=== PATIENT | male | born 1965 | race Caucasian/White ===

== ENCOUNTER 2018-02-07 23:32 | Emergency (ER) | payer MEDICARE, SELFPAY ==
[2018-02-07 23:33] VITALS: BP 161/72; PULSE 101; RESP 20; TEMP 36.7; O2SAT 95; BMI 26.1
--- NOTE | 2018-02-07 23:57 | ED.DCSUM_ITS ---
- ER Visit Summary Date of Service: 02/07/18 Chief Complaint: Nausea vomiting and shortness of breath History of Present Illness: The patient is a 52 M with nausea vomiting and shortness of breath after healing chlorine. He has had symptoms like this in the past. He has no abdominal pain. He has a history of asthma feels some wheezing. He has no chest pain no recent fever chills everything started about 2 hours ago. Physical Examination: Patient is actively vomiting. Moist mucous membranes, no obvious facial deformity No C-spine tenderness supple neck. Regular rate and rhythm without any obvious murmurs Slight wheezing bilaterally speaking in full sentences without any obvious respiratory distress Abdomen soft and nontender no guarding or rebound Moves all extremities without any difficulty or pain. Skin does not show any obvious rashes or lesions, no trauma. Alert oriented ?3 with no gross focal deficit Emergency Department Course and Treatment: Patient received albuterol, antiemetics and he significantly improve his workup shows slight leukocytosis, I believe this is nonspecific. This may be secondary to the fact that he inhaled the bleach, it could be early stages of either GI or an upper respiratory infection. Patient has no fever and appears improved. He did mention he had some diffuse muscle aches after the vomiting, this was treated. I will discharge him in stable condition Discharge stable condition Impression: Nausea vomiting This note was generated with [employer] dictation software. It may contain incorrect words, spelling, and punctuation that were not noted in review of the chart prior to signing ED Disposition - Plan for ED Patient: Disposition: Home or Assisted Living Chief Complaint: General Illness Instructions: ED Nausea Vomiting Referrals: NOT,DEFINED [NON-STAFF] - 3-5 Days
[2018-02-08] MEDS: LORazepam 2 MG/ML Syringe 0.5 MG IV (00:13)
[2018-02-08] MEDS: Ondansetron 4 MG/2 ML Vial IV (00:13)
--- NOTE | 2018-02-08 00:21 | RAD_ITS ---
STUDY: X-RAY CHEST REASON FOR EXAM: Male, 52 years old. PT STATES HE WAS EXPOSED TO BLEACH AND NOW C/O DIFF BREATHING,COUGHING, SWEATING AND N/V.C/O THIRST TECHNIQUE: Single AP portable view of the chest. COMPARISON: None. FINDINGS: The lungs are clear and expanded. There is no demonstrated pleural abnormality. Normal size heart. Normal mediastinum and devan. Normal visualized pulmonary arteries. Normal visualized aortic arch and descending thoracic aorta. There is a dextroscoliosis of the thoracic spine. There is degenerative osteoarthritis of the bilateral shoulders. There is no demonstrated abnormality of the visualized soft tissue structures of the upper abdomen. RAD/Chest 1 View (Portable) IMPRESSION: Degenerative changes, as described above. No demonstrated acute cardiopulmonary process. Electronically Signed: Denis New MD at 1:23 EST Tel , Service support ,
[2018-02-08 00:37] LABS: Basophil# 0.03 X10^3/uL; Basophil% 0.2 % (0-1); Eosinophil# 0.08 X10^3/uL; Eosinophils% 0.5 % (0-5); Hematocrit 42.7 % (40-54); Hemoglobin 14.9 g/dl (13.0-16.5); Lymphocyte % 10.8 % (19-41); Mean Corp Hgb Conc 34.9 g/gl (32-36); Mean Corpuscular Hgb 32.5 pg (27.0-32.0); Monocyte# 0.98 X10^3/uL; Monocyte% 6.6 % (0-10); Neutrophil # 12.03 X10^3/uL (2.7-7.7); Neutrophil % 81.6 % (47-70); POSITIVE COUNT NO; POSITIVE DIFFERENTIAL NO; POSITIVE MORPHOLOGY NO; Platelet Count 327 K/mm3 (150-450); RBC Distribution Width CV 13.5 % (11.6-14.6); RBC Distribution Width SD 44.8 fl (35.1-43.9); Red Blood Count 4.59 M/mm3 (4.6-6.2); White Blood Count 14.8 K/mm3 (4.4-11.0)
[2018-02-08 00:46] LABS: ALB/GLOB Ratio 1.3 RATIO (0.9-2.4); AST(SGOT) 15 U/L (15-37); Alanine Aminotransfer ALT/SGPT 30 U/L (16-61); Albumin, Serum 4.1 g/dL (3.2-5.0); Alkaline Phosphatase 70 U/L (45-117); Anion Gap 10 (5-15); BUN 19 mg/dL (7-18); BUN/Creat Ratio 19.8 RATIO (10-20); Chloride 104 mmol/L (98-107); Creatinine, Serum 0.96 mg/dL (0.70-1.30); EST Glomerular Filtration Rate 87 mL/min (>60); Est Glom Filt Rate - Afr Amer 105 mL/min (>60); Estimated Creatinine Clearance 86.09 ml/min; Globulin 3.1 g/dL (2.2-4.2); Glucose 91 mg/dL (74-106); Potassium 3.2 mmol/L (3.5-5.1); Protein, Total 7.2 g/dL (6.4-8.2); Sodium Level 139 mmol/L (136-145)
[2018-02-08] MEDS: 0.9% Normal Saline 1,000 ML 999 ML IV (01:19)
[2018-02-08] MEDS: HYDROmorphone 0.5 MG/0.5 ML SYRINGE IV (01:20)
[2018-02-08] MEDS: Ketorolac 15 MG/ML Vial IV (01:23)
[2018-02-08 03:15] VITALS: BP 127/72; BP 127/78; PULSE 86; PULSE 88; RESP 16; O2SAT 92
[2018-02-08] MEDS: HYDROcodone Bitartrate/Apap 5/325 Tablet PO (03:28)
[2018-02-08] MEDS: Ondansetron ODT 4 MG Tablet PO (03:29)
== END 2018-02-08 03:32 | disposition home or self-care (01) ==
PROVIDERS: Emergency Provider Emergency Medicine
DX: R11.2 Nausea with vomiting, unspecified (principal); J45.909 Unspecified asthma, uncomplicated; Z77.098 Contact with and (suspected) exposure to other hazardous, chiefly nonmedicinal, chemicals; M79.10 Myalgia, unspecified site; Z72.0 Tobacco use
CPT/HCPCS: 71045; 80053; 85025; 96361; 96374; 96375; 99285; A4216; J2405

== ENCOUNTER 2018-02-14 20:22 | Observation (INO) | payer MEDICARE, SELFPAY ==
[2018-02-14 20:27] VITALS: BP 172/108; PULSE 122; RESP 20; TEMP 36.7; O2SAT 95; BMI 27.0
[2018-02-14 21:10] LABS: Absolute Lymphocyte Count 1.62 X10^3/ul (0.83-4.51); Absolute Neutrophil Count 23.5 X10^3/uL (2.0-7.7); Basophil# 0.04 X10^3/uL; Basophil% 0.1 % (0-1); Eosinophil# 0.05 X10^3/uL; Eosinophils% 0.2 % (0-5); Hematocrit 45.7 % (40-54); Hemoglobin 15.7 g/dl (13.0-16.5); Lymphocyte # 1.62 X10^3/ul (4.0); Mean Corp Hgb Conc 34.4 g/gl (32-36); Mean Corpuscular Hgb 31.8 pg (27.0-32.0); Mean Corpuscular Volume 92.5 fL (80-94); Monocyte# 1.78 X10^3/uL; Monocyte% 6.6 % (0-10); Neutrophil # 23.46 X10^3/uL (2.7-7.7); Neutrophil % 86.4 % (47-70); Platelet Count 423 K/mm3 (150-450); RBC Distribution Width CV 13.5 % (11.6-14.6); RBC Distribution Width SD 44.4 fl (35.1-43.9); Red Blood Count 4.94 M/mm3 (4.6-6.2); White Blood Count 27.2 K/mm3 (4.4-11.0)
[2018-02-14 21:21] LABS: AST(SGOT) 12 U/L (15-37); Alanine Aminotransfer ALT/SGPT 24 U/L (16-61); Albumin, Serum 4.1 g/dL (3.2-5.0); Alkaline Phosphatase 102 U/L (45-117); Anion Gap 13 (5-15); BUN 17 mg/dL (7-18); BUN/Creat Ratio 14.3 RATIO (10-20); Calcium,Total 9.2 mg/dL (8.5-10.1); Chloride 104 mmol/L (98-107); Creatinine, Serum 1.19 mg/dL (0.70-1.30); EST Glomerular Filtration Rate 68 mL/min (>60); Est Glom Filt Rate - Afr Amer 82 mL/min (>60); Estimated Creatinine Clearance 69.45 ml/min; Globulin 4.2 g/dL (2.2-4.2); Glucose 116 mg/dL (74-106); Lipase 107 U/L (73-393); Potassium 3.5 mmol/L (3.5-5.1); Protein, Total 8.3 g/dL (6.4-8.2); Sodium Level 138 mmol/L (136-145)
[2018-02-14 21:25] VITALS: BP 164/84; PULSE 111; RESP 20; O2SAT 94
[2018-02-14] MEDS: Metoclopramide 10 MG/2 ML Vial IV (21:26)
[2018-02-14] MEDS: 0.9% Normal Saline 1,000 ML 1000 ML IV (21:26)
[2018-02-14 21:31] LABS: Differential Indicated SCAN CRITERIA MET; Lactic Acid 4.6 mmol/L (0.4-2.0); POSITIVE COUNT NO; POSITIVE DIFFERENTIAL YES; POSITIVE MORPHOLOGY NO
--- NOTE | 2018-02-14 21:42 | ED.RN ---
notified Dr. Pro of lactic acid 4.6
--- NOTE | 2018-02-14 22:01 | CT_ITS ---
STUDY: CT ABDOMEN AND PELVIS WITHOUT CONTRAST REASON FOR EXAM: Male, 52 years old. Hematemesis RADIATION DOSAGE (If Supplied By Facility): CTDIvol = ( 6.68 ) mGy, DLP = ( 348.86 ) mGycm TECHNIQUE: Transaxial images were obtained from the dome of the diaphragm to the symphysis pubis without oral contrast, and without intravenous contrast. Sagittal and coronal images were reconstructed. Individualized dose optimization techniques were used for this CT. COMPARISON: November 04, 2016 FINDINGS: The visualized lung bases are unremarkable. The visualized portions of the heart are within normal limits. Liver is normal size. There is a small cyst in left lobe. Bile ducts aren't dilated. Normal gallbladder and extrahepatic biliary system. Normal spleen. Normal pancreas. Small hiatal hernia is noted. Normal bilateral adrenal glands. Small nodule in the right adrenal measuring approximately 2.7 x 1.5 cm Normal left kidney. Normal visualized stomach. Normal small intestine. Diverticular changes of the distal descending and sigmoid colon without evidence for acute diverticulitis The appendix is visualized and appears normal. Mild atherosclerotic changes of the aorta without evidence for aneurysm Normal inferior vena cava. Normal retroperitoneum. Normal urinary bladder. Tiny fat-containing umbilical hernia. Lumbar spine demonstrates moderate spondylosis CT/Abdomen/Pelvis without Cont IMPRESSION: Diverticular changes of the distal descending and sigmoid colon without evidence for acute diverticulitis No acute abnormalities Electronically Signed: Dale Grier MD at 22:46 EST , Service support ,
[2018-02-14] MEDS: 0.9% Normal Saline 1,000 ML IV.SOLN. 1000 ML IV (22:26)
[2018-02-14 23:09] VITALS: BP 151/92; PULSE 104; RESP 18; O2SAT 96
--- NOTE | 2018-02-14 23:19 | EKG12_ITS ---
Test Reason : CP Blood Pressure : / mmHG Vent. Rate : 098 BPM Atrial Rate : 098 BPM P-R Int : 152 ms QRS Dur : 088 ms QT Int : 360 ms P-R-T Axes : 055 025 031 degrees QTc Int : 459 ms Normal sinus rhythm Normal ECG Confirmed by LEODAN CURIEL, CARLINE ([id number]), copy editor JEANNIE FORD ([id number]) on 02/16/2018 3:43:44 PM Referred By: DR SORTO Confirmed By:CARLINE ALCOCER MD
--- NOTE | 2018-02-14 23:25 | RAD_ITS ---
STUDY: X-RAY CHEST REASON FOR EXAM: Male, 52 years old. Chest pain TECHNIQUE: Frontal view of the chest COMPARISON: 02/08/2018 FINDINGS: The lungs are clear. There are no pleural effusions. There is no pneumothorax. The heart is normal in size. The visualized osseous structures are within normal limits. RAD/Chest 1 View (Portable) IMPRESSION: No acute thoracic pathology. Electronically Signed: Ronny Saul, at 23:41 EST Tel , Service support ,
[2018-02-14] MEDS: Ondansetron 4 MG/2 ML Vial IV (23:35)
[2018-02-14] MEDS: Morphine 4 MG/ML Syringe IV (23:35)
--- NOTE | 2018-02-14 23:46 | ED.VISSUMM ---
- ER Visit Summary Date of Service: 02/14/18 Chief Complaint: [Nausea and vomiting] History of Present Illness: The patient is a 52 M [presents the emergency department complaint of vomiting that started today after eating at [employer]. Patient states that he was not feeling well afterwards and started to vomit and after about the fourth episode of emesis started having bright red blood in his vomitus. Patient complains of upper abdominal discomfort. Patient apparently was in the emergency department 5 days ago for similar complaint of vomiting and some trouble breathing. Patient was discharged to home and had not been doing relatively well. Patient denies any fever. He denies any chest pain to me initially. He denies any shortness of breath. Patient denies recent travel or antibiotic usage. He denies any sick contacts.] Physical Examination: [HEENT-PERRLA, EOMI. Cranial nerves II through XII grossly intact. TMs clear. Mucous membranes moist. No adenopathy. Cardiovascular-regular rate and rhythm without murmur or ectopy Lungs-clear to auscultation, chest wall stable without crepitus or subcu emphysema Abdomen-normoactive bowel sounds, soft. Patient has tenderness over the epigastric region with some guarding. There is no rebound, rigidity, or perineal signs. Extremities-intact ?4, normal range of motion, normal pulses, atraumatic] Test Results: [CBC with differential obtained on arrival showed a white count of 27,000, hemoglobin 15.7, hematocrit 46, platelets 423. Chemistries unremarkable. BUN was 17 and creatinine 1.19. LFTs were unremarkable. Lipase was 107. Lactate was elevated 4.6. Patient had a CT scan of the abdomen and pelvis showed some diverticulosis otherwise nothing acute. EKG obtained after patient started complaining of chest pain showed a sinus rhythm with a ventricular rate of 98 bpm with no acute ST segment changes. Troponin is pending. Chest x-ray showed nothing acute. Emergency Department Course and Treatment: [Patient was given Reglan on arrival and he had no further vomiting. The emesis patient had on arrival to the ER was dark and maroon colored. After patients are complaint of chest pain he was given morphine and Zofran. Case was discussed with Dr. Mario Lora who is on-call for general surgery as my plan was to admit patient to medicine. I suspect patient likely has a Irlanda-Corral tear and has had no further vomiting in the emergency department. Patient was started on Protonix.] Treatment Plan: [Admit for further workup and evaluation] Disposition: [Admit] Impression: [Upper GI bleed Irlanda-Corral tear Leukocytosis-etiology uncertain Chest pain Lactic acidosis] This note was generated with [employer] dictation software. It may contain incorrect words, spelling, and punctuation that were not noted in review of the chart prior to signing ED Disposition - Plan for ED Patient: Chief Complaint: Nausea/Vomiting Referrals: Giorgi Leggett, [employer] [Primary Care Provider] -
--- NOTE | 2018-02-14 23:56 | ED.DCSUM_ITS ---
- ER Visit Summary Date of Service: 02/14/18 Chief Complaint: [Nausea and vomiting] History of Present Illness: The patient is a 52 M [presents the emergency department complaint of vomiting that started today after eating at [employer]. Patient states that he was not feeling well afterwards and started to vomit and after about the fourth episode of emesis started having bright red blood in his vomitus. Patient complains of upper abdominal discomfort. Patient apparently was in the emergency department 5 days ago for similar complaint of vomiting and some trouble breathing. Patient was discharged to home and had not been doing relatively well. Patient denies any fever. He denies any chest pain to me initially. He denies any shortness of breath. Patient denies recent travel or antibiotic usage. He denies any sick contacts.] Physical Examination: [HEENT-PERRLA, EOMI. Cranial nerves II through XII grossly intact. TMs clear. Mucous membranes moist. No adenopathy. Cardiovascular-regular rate and rhythm without murmur or ectopy Lungs-clear to auscultation, chest wall stable without crepitus or subcu emphysema Abdomen-normoactive bowel sounds, soft. Patient has tenderness over the epigastric region with some guarding. There is no rebound, rigidity, or perin eal signs. Extremities-intact ?4, normal range of motion, normal pulses, atraumatic] Test Results: [CBC with differential obtained on arrival showed a white count of 27,000, hemoglobin 15.7, hematocrit 46, platelets 423. Chemistries unremarkable. BUN was 17 and creatinine 1.19. LFTs were unremarkable. Lipase was 107. Lactate was elevated 4.6. Patient had a CT scan of the abdomen and pelvis showed some diverticulosis otherwise nothing acute. EKG obtained after patient started complaining of chest pain showed a sinus rhythm with a ventricular rate of 98 bpm with no acute ST segment changes. Troponin is pending. Chest x-ray showed nothing acute. Emergency Department Course and Treatment: [Patient was given Reglan on arrival and he had no further vomiting. The emesis patient had on arrival to the ER was dark and maroon colored. After patients are complaint of chest pain he was given morphine and Zofran. Case was discussed with Dr. Mario Lora who is on- call for general surgery as my plan was to admit patient to medicine. I suspect patient likely has a Irlanda-Corral tear and has had no further vomiting in the emergency department. Patient was started on Protonix.] Treatment Plan: [Admit for further workup and evaluation] Disposition: [Admit] Impression: [Upper GI bleed Irlanda-Corral tear Leukocytosis-etiology uncertain Chest pain Lactic acidosis] This note was generated with [employer] dictation software. It may contain incorrect words, spelling, and punctuation that were not noted in review of the chart prior to signing ED Disposition - Plan for ED Patient: Chief Complaint: Nausea/Vomiting Referrals: Giorgi Leggett, [employer] [Primary Care Provider] -
[2018-02-15] VITALS (14 sets, daily range): BP systolic 89–142; BP diastolic 52–87; PULSE 69–96; RESP 15–18; TEMP 36.5–36.7; O2SAT 92–97; BMI 26.4; BMI 26.5
--- NOTE | 2018-02-15 00:20 | PCM.HP.STD ---
Problem List (1) Acute GI bleeding Status: Acute History of Present Illness Date of Admission: 02/15/18 Chief Complaint: hematemesis The patient is a 52 year old M with a significant history of COPD and asthma who presented to the emergency department because of hematemesis that started on the day of admission. Patient had nausea, vomiting and abdominal pain for about 1 week. He presented to the emergency department about 5 days and was given pain medications and antiemetics and sent home. Patient reported that he went to [facility] today and after eating 2 tacos he felt nauseated and went home. When he went home he vomited and had some hematemesis. Patient has chronic diarrhea that he attributes to lactose intolerance. Indeed he reports that on the day of presentation his diarrhea slowed down with him having about 3 bowel movements on the day. Emergency department doctor reported coffee ground emesis. Also patient reports of left-sided chest pain that started at the same time that his symptoms above began. He reports that his chest pain is excruciating; and he describes it as somebody given a blow to his chest. His chest pain is aggravated by laughing or coughing.; And is relieved by relaxing. Associated if his symptoms is diaphoresis. His chest pain is episodic. Importantly patient reports smoking marijuana. However since his symptoms started he has not smoked any marijuana. 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 He uses CBD oil that he puts under his tongue. He has multiple allergies. At emergency department patient was found to have elevated white count of 27.2; and lactic acid of 4.6. Past Medical History Medical History: Medical History (Last Updated 02/15/18 @ 01:00 by Elmer Duffy MD) Asthma J45.909 COPD (chronic obstructive pulmonary disease) J44.9 Allergies aspirin Allergy (Verified 02/14/18 20:30) Shortness of breath ciprofloxacin [From Cipro] Allergy (Verified 02/14/18 20:30) Unknown ciprofloxacin HCl [From Cipro] Allergy (Verified 02/14/18 20:30) Unknown doxycycline Allergy (Verified 02/14/18 20:30) Unknown Iodinated Contrast- Oral and IV Dye [Iodinated Contrast Media - IV Dye] Allergy (Verified 02/14/18 20:30) Unknown lisinopril Allergy (Verified 02/14/18 20:30) Other milk Allergy (Verified 02/14/18 20:30) Unknown Home Medications: Ambulatory Orders Medication Instructions Recorded NK 02/14/18 Surgical History: herniorrhaphy, - - Neck surgery with plates x 3 Lives: Spouse/ Significant Other Smoking Status: Current every day smoker - *Family History Maternal History Items: Diabetes, Heart Disease Paternal History Items: Diabetes, Heart Disease Review of Systems Constitutional: Reports: Weakness. Denies: Chills, Fever, Weight Change HEENT: Denies: Head Aches, Sinus Congestion, Sinus Drainage Cardiovascular: Reports: Chest Pain. Denies: Palpitations Respiratory: Reports: Cough. Denies: Shortness of breath at rest, Sputum production Gastrointestinal: Reports: Abdominal Pain, Diarrhea - chronic, Hematemesis, Nausea, Vomiting Genitourinary: Denies: Dysuria Musculoskeletal: Denies: Joint Pain, Joint Tenderness Skin: Denies: Rash, Wounds Neurological: Denies: Numbness, Tingling, Focal weakness Psychiatric: Denies: Anxiety, Depression, Homicidal Ideations, Suicidal Ideations Hematologic/ Lymphatic: Denies: Easy Bruising, Easy Bleeding VTE Information - Inpt Only VTE Present on Admission: No VTE Mechan Device Prophylaxis: SCD's VTE Pharm Prophylaxis ordered?: No Reason prophylaxis not ordered:: Treatment Not Indicated - With GI bleed. Patient Problems: Active and Suspected Problems (Last Updated 02/15/18 @ 01:00 by Elmer Duffy MD) Acute GI bleeding (Acute) - Physical Exam General: Alert, Oriented x3, Cooperative HEENT: Atraumatic, PERRLA, EOMI, Normocephalic Neck: Supple, No JVD, Negative Carotid Bruits Lungs: Clear to auscultation, Normal air movement Cardiovascular: Regular rate, No murmurs Abdomen: Bowel Sounds Present, Soft, Tender Extremities: No edema, Capillary Refill Less than 3 Seconds Skin: No rashes, No breakdown Musculoskeletal: No Tenderness to Palpation of Joints or Extremities Neurological: Cranial nerves II-XII grossly intact Psych/Mental Status: Normal Affect, Appropriate Vital Signs Temp Pulse Resp BP Pulse Ox 98.1 F 104 H 18 151/92 H 96 02/14/18 20:27 02/14/18 23:09 02/14/18 23:09 02/14/18 23:09 02/14/18 23:09 Oxygen Delivery Method Room Air Weight: 80.6 kg Body Mass Index (BMI) 27.0 Laboratory Tests Past 24 Hrs 02/14/18 02/14/18 02/14/18 20:30 20:30 20:30 WBC 27.2 H RBC 4.94 Hgb 15.7 Hct 45.7 MCV 92.5 MCH 31.8 MCHC 34.4 RDW 13.5 RDW Differential 44.4 H Plt Count 423 MPV 10.0 Immature Gran % (Auto) 0.700 Neut % (Auto) 86.4 H Lymph % (Auto) 6.0 L [place] % (Auto) 6.6 Eos % (Auto) 0.2 Baso % (Auto) 0.1 Absolute Neuts (auto) 23.5 H Absolute Lymphs (auto) 1.62 Total Counted Not Reportable Differential Comment Diff Path Review May foll Sodium 138 Potassium 3.5 Chloride 104 Carbon Dioxide 21.0 Anion Gap 13 BUN 17 Creatinine 1.19 Estim Creat Clear Calc 69.45 Est GFR (MDRD) Af Amer 82 Est GFR (MDRD) Non-Af 68 BUN/Creatinine Ratio 14.3 Glucose 116 H Lactic Acid 4.6 H* Calcium 9.2 Total Bilirubin 1.00 AST 12 L ALT 24 Alkaline Phosphatase 102 Total Protein 8.3 H Albumin 4.1 Globulin 4.2 Albumin/Globulin Ratio 1.0 Lipase 107 Blood Type Antibody Screen 02/14/18 21:02 WBC RBC Hgb Hct MCV MCH MCHC RDW RDW Differential Plt Count MPV Immature Gran % (Auto) Neut % (Auto) Lymph % (Auto) [place] % (Auto) Eos % (Auto) Baso % (Auto) Absolute Neuts (auto) Absolute Lymphs (auto) Total Counted Differential Comment Diff Path Review Sodium Potassium Chloride Carbon Dioxide Anion Gap BUN Creatinine Estim Creat Clear Calc Est GFR (MDRD) Af Amer Est GFR (MDRD) Non-Af BUN/Creatinine Ratio Glucose Lactic Acid Calcium Total Bilirubin AST ALT Alkaline Phosphatase Total Protein Albumin Globulin Albumin/Globulin Ratio Lipase Blood Type O POSITIVE Antibody Screen NEGATIVE Assessment/Plan All Active Problems (Last Updated 02/15/18 @ 01:00 by Elmer Duffy MD) Acute GI bleeding (Acute) The patient is a 52 year old M with a significant history of COPD and asthma who presented to the emergency department with nausea, vomiting abdominal pain and hematemesis. Acute GI bleed Differential diagnosis include Irlanda Corral tear; esophagitis; gastritis or other. Likely upper GI bleeding. Received IV bolus of Protonix. Protonix infusion continues We will check CBC in the a.m. and then H&H every 8 hours. Chest pain Patient reports a family history of heart attacks at both sides of his family Chest pain is aggravated with coughing and laughing which make musculoskeletal source of chest pain likely. Also chest pain could be attributed to GI pathology Will trend troponin at this time. If chest pain persists consider further cardiac work up Leukocytosis WBC 27.2 Likely from Gastritis Trend. Lactic acidosis Likely from dehydration Trend IV hydration. Asthma Stable Marijuana Abuse Counselled DVT prophlyaxis SCD . Code Visit OBSV E&M: 14725 Initial observation care L3
--- NOTE | 2018-02-15 00:47 | EKG12_ITS ---
Test Reason : ADM EKG Blood Pressure : / mmHG Vent. Rate : 094 BPM Atrial Rate : 094 BPM P-R Int : 158 ms QRS Dur : 082 ms QT Int : 366 ms P-R-T Axes : 050 029 030 degrees QTc Int : 457 ms Normal sinus rhythm Normal ECG When compared with ECG of 01-JUN-2010 16:57, No significant change was found Confirmed by LEODAN CURIEL, CARLINE ([id number]), field map editor JEANNIE FORD ([id number]) on 02/19/2018 1:50:00 PM Referred By: TERESA Confirmed By:CARLINE ALCOCER MD
[2018-02-15 00:58] LABS: Reflex Lactate? Y
[2018-02-15] MEDS: 0.9% Normal Saline 1,000 ML 100 ML IV (00:59)
--- NOTE | 2018-02-15 00:59 | ED.RN ---
took pt to floor with multiple family members
[2018-02-15 01:14] LABS: Lactic Acid 1.1 mmol/L (0.4-2.0)
[2018-02-15 03:59] LABS: Hematocrit 37.3 % (40-54); Hemoglobin 12.5 g/dl (13.0-16.5); Mean Corp Hgb Conc 33.5 g/gl (32-36); Mean Corpuscular Hgb 31.4 pg (27.0-32.0); Mean Corpuscular Volume 93.7 fL (80-94); Mean Platelet Vol. 9.5 fl (6.2-12.0); Platelet Count 315 K/mm3 (150-450); RBC Distribution Width CV 13.4 % (11.6-14.6); RBC Distribution Width SD 44.7 fl (35.1-43.9); Red Blood Count 3.98 M/mm3 (4.6-6.2); White Blood Count 21.4 K/mm3 (4.4-11.0)
[2018-02-15 04:24] LABS: Scan Indicated on CBC? Y/N NO
--- NOTE | 2018-02-15 05:53 | HP.PCM_ITS ---
Problem List (1) Acute GI bleeding Status: Acute History of Present Illness Date of Admission: 02/15/18 The patient is a 52 year old M who presented to the emergency room last night after severe coughing with subsequent nausea vomiting and hematemesis. Claims he ate at [employer] had 2 tacos took a shower felt nauseated started coughing and then had vomiting. States that because of his asthma and COPD oil he has numbness in the past but without the blood. He states that he is on herbal medications including CBD. He denies previous history of stomach ulcer. He states that he does not take any nonsteroidal anti-inflammatory agents. Claims that he is 100% disabled secondary to previous trauma back and neck injury. He denies any previous surgery on his abdomen. He has had remote inguinal hernia repairs. On his presentation his white blood cell count was 27.2 with hemoglobin 15.7 and hematocrit of 45.7 and platelet count of 423,000. This morning his white blood cell count is 21.4 with a hemoglobin 12.5 and hematocrit of 37.3 and a platelet count of 315,000. On his admission his BUN was slightly elevated at 17 his creatinine was 1.19. He states that he had not been feeling well for period of time and had decreased oral intake. His lactic acid level on presentation was 4.6 and then on repeat level is 1.1. Troponin is normal. Liver function tests are normal. Coagulation profile was not obtained. Past Medical History Medical History: Medical History (Last Updated 02/15/18 @ 01:00 by Elmer Duffy MD) Asthma J45.909 COPD (chronic obstructive pulmonary disease) J44.9 Allergies aspirin Allergy (Verified 02/14/18 20:30) Shortness of breath ciprofloxacin [From Cipro] Allergy (Verified 02/14/18 20:30) Unknown ciprofloxacin HCl [From Cipro] Allergy (Verified 02/14/18 20:30) Unknown doxycycline Allergy (Verified 02/14/18 20:30) Unknown Iodinated Contrast- Oral and IV Dye [Iodinated Contrast Media - IV Dye] Allergy (Verified 02/14/18 20:30) Unknown lisinopril Allergy (Verified 02/14/18 20:30) Other milk Allergy (Verified 02/14/18 20:30) Unknown Home Medications: Ambulatory Orders Medication Instructions Recorded NK 02/14/18 Surgical History: herniorrhaphy, - - Neck surgery with plates x 3 Lives: Spouse/ Significant Other Smoking Status: Current every day smoker - *Family History Maternal History Items: Diabetes, Heart Disease Paternal History Items: Diabetes, Heart Disease Review of Systems Constitutional: Reports: Anorexia Respiratory: Reports: Cough Gastrointestinal: Reports: Hematemesis, Nausea, Vomiting Genitourinary: Denies: Dysuria Musculoskeletal: Reports: Back Pain Endocrine: Denies: Change in Body Habitus VTE Information - Inpt Only VTE Present on Admission: No Patient Problems: Active and Suspected Problems (Last Updated 02/15/18 @ 01:00 by Elmer Duffy MD) Acute GI bleeding (Acute) - Physical Exam General: Alert, Oriented x3, Cooperative, No apparent distress HEENT: Atraumatic Oral: Moist Mucosa Neck: Supple Lungs: Clear to auscultation, Normal air movement, - - Increased anterior posterior diameter Cardiovascular: Regular rate, Regular Rhythm Abdomen: Bowel Sounds Present, Soft, Non Tender, Non-Distended Extremities: No Calf Tenderness Skin: No rashes Psych/Mental Status: Normal Affect Vital Signs Temp Pulse Resp BP Pulse Ox 98.1 F 84 18 127/54 H 96 02/15/18 05:04 02/15/18 05:04 02/15/18 05:04 02/15/18 05:04 02/15/18 05:04 Oxygen Delivery Method Room Air Weight: 174 lb 13.225 oz Body Mass Index (BMI) 26.4 Intake and Output for Last 24 Hours 02/13/18 02/14/18 02/15/18 23:59 23:59 23:59 Intake Total 416 / 416 Output Total 325 / 325 Balance 91 / 91 Laboratory Tests Past 24 Hrs 02/14/18 02/14/18 02/14/18 20:30 20:30 20:30 WBC 27.2 H RBC 4.94 Hgb 15.7 Hct 45.7 MCV 92.5 MCH 31.8 MCHC 34.4 RDW 13.5 RDW Differential 44.4 H Plt Count 423 MPV 10.0 Immature Gran % (Auto) 0.700 Neut % (Auto) 86.4 H Lymph % (Auto) 6.0 L Vernon % (Auto) 6.6 Eos % (Auto) 0.2 Baso % (Auto) 0.1 Absolute Neuts (auto) 23.5 H Absolute Lymphs (auto) 1.62 Total Counted Not Reportable Differential Comment Diff Path Review May foll Sodium 138 Potassium 3.5 Chloride 104 Carbon Dioxide 21.0 Anion Gap 13 BUN 17 Creatinine 1.19 Estim Creat Clear Calc 69.45 Est GFR (MDRD) Af Amer 82 Est GFR (MDRD) Non-Af 68 BUN/Creatinine Ratio 14.3 Glucose 116 H Lactic Acid 4.6 H* Calcium 9.2 Total Bilirubin 1.00 AST 12 L ALT 24 Alkaline Phosphatase 102 Troponin I Total Protein 8.3 H Albumin 4.1 Globulin 4.2 Albumin/Globulin Ratio 1.0 Lipase 107 Blood Type Antibody Screen 02/14/18 02/15/18 02/15/18 21:02 00:28 00:28 WBC RBC Hgb Hct MCV MCH MCHC RDW RDW Differential Plt Count MPV Immature Gran % (Auto) Neut % (Auto) Lymph % (Auto) Vernon % (Auto) Eos % (Auto) Baso % (Auto) Absolute Neuts (auto) Absolute Lymphs (auto) Total Counted Differential Comment Diff Path Review Sodium Potassium Chloride Carbon Dioxide Anion Gap BUN Creatinine Estim Creat Clear Calc Est GFR (MDRD) Af Amer Est GFR (MDRD) Non-Af BUN/Creatinine Ratio Glucose Lactic Acid 1.1 Calcium Total Bilirubin AST ALT Alkaline Phosphatase Troponin I 0.015 Total Protein Albumin Globulin Albumin/Globulin Ratio Lipase Blood Type O POSITIVE Antibody Screen NEGATIVE 02/15/18 02/15/18 03:42 03:42 WBC 21.4 H RBC 3.98 L Hgb 12.5 L Hct 37.3 L MCV 93.7 MCH 31.4 MCHC 33.5 RDW 13.4 RDW Differential 44.7 H Plt Count 315 MPV 9.5 Immature Gran % (Auto) Neut % (Auto) Lymph % (Auto) Vernon % (Auto) Eos % (Auto) Baso % (Auto) Absolute Neuts (auto) Absolute Lymphs (auto) Total Counted Differential Comment Diff Path Review Sodium Potassium Chloride Carbon Dioxide Anion Gap BUN Creatinine Estim Creat Clear Calc Est GFR (MDRD) Af Amer Est GFR (MDRD) Non-Af BUN/Creatinine Ratio Glucose Lactic Acid Calcium Total Bilirubin AST ALT Alkaline Phosphatase Troponin I 0.020 Total Protein Albumin Globulin Albumin/Globulin Ratio Lipase Blood Type Antibody Screen Assessment/Plan All Active Problems (Last Updated 02/15/18 @ 01:00 by Elmer Duffy MD) Acute GI bleeding (Acute) 52-year-old gentleman who after severe coughing had nausea and vomiting with hematemesis. The presentation is very much consistent with a [place] tear. He appears to been very stable overnight. He is afebrile with a normal blood pressure and heart rate. I proposed for him a soft with possible biopsy or polypectomy or control of hemorrhage if indicated. He has had an opportunity to ask and have questions answered. He states that he must be completely out because of a combative nature under anesthesia. We will perform this with monitored anesthesia care. He has had an opportunity to ask and have questions answered. We will proceed later today as scheduling permits. I appreciate the opportunity of assisting with his surgical care. Mario Lora M.D., F.A.C.S.
[2018-02-15] MEDS: Acetaminophen 325 MG Tablet 650 MG PO (05:54)
[2018-02-15 06:38] LABS: Absolute Lymphocyte Count 1.92 X10^3/ul (0.83-4.51); Absolute Neutrophil Count 16.1 X10^3/uL (2.0-7.7); Basophil# 0.03 X10^3/uL; Basophil% 0.2 % (0-1); Eosinophil# 0.03 X10^3/uL; Eosinophils% 0.2 % (0-5); Hematocrit 39.2 % (40-54); Hemoglobin 13.1 g/dl (13.0-16.5); Lymphocyte # 1.92 X10^3/ul (4.0); Lymphocyte % 10.2 % (19-41); Mean Corp Hgb Conc 33.4 g/gl (32-36); Mean Corpuscular Hgb 31.4 pg (27.0-32.0); Mean Platelet Vol. 9.7 fl (6.2-12.0); Monocyte# 0.76 X10^3/uL; Neutrophil # 16.05 X10^3/uL (2.7-7.7); Neutrophil % 85.1 % (47-70); Platelet Count 330 K/mm3 (150-450); RBC Distribution Width CV 13.6 % (11.6-14.6); RBC Distribution Width SD 44.8 fl (35.1-43.9); Red Blood Count 4.17 M/mm3 (4.6-6.2); White Blood Count 18.9 K/mm3 (4.4-11.0)
[2018-02-15 06:39] LABS: International Normalized Ratio 1.1; Prothrombin Time (Protime)PT. 14.3 SECONDS (11.7-14.9)
[2018-02-15 06:40] LABS: Partial Thromboplast Time 35.7 Seconds (24.1-36.2)
[2018-02-15 06:42] LABS: POSITIVE COUNT NO; POSITIVE DIFFERENTIAL NO; POSITIVE MORPHOLOGY NO
[2018-02-15 06:53] LABS: Anion Gap 9 (5-15); BUN 14 mg/dL (7-18); BUN/Creat Ratio 16.3 RATIO (10-20); Calcium,Total 8.1 mg/dL (8.5-10.1); Chloride 107 mmol/L (98-107); Creatinine, Serum 0.86 mg/dL (0.70-1.30); EST Glomerular Filtration Rate 99 mL/min (>60); Est Glom Filt Rate - Afr Amer 119 mL/min (>60); Glucose 95 mg/dL (74-106); Potassium 3.7 mmol/L (3.5-5.1); Sodium Level 140 mmol/L (136-145)
--- NOTE | 2018-02-15 10:39 | NURSING ---
report called to otf [facility]
--- NOTE | 2018-02-15 11:30 | EGD_PTH ---
PATIENT: MIGUEL ANGEL AGUIRRE LOC: [facility] U#:[id number] AGE/SX: 52/M ROOM: [facility] RE02/15/[address]: Dr. Vipin Law DO : 1965 BED: 1 DIS: 02/15/2018 SPEC #: [id number] RECD: 02/15/18 14:05 STATUS: [facility] #: [id number] NAHED: 02/15/18 11:[address]: Mario Lora DEPT: SURGICAL PATHOLOGY RECD BY: Niko Tang ENTERED: 02/15/18 15:45 SP TYPE: EGD BIOPSY OTHR DR: MD Dr. Vipin Kelly DO Dr. Robert D Cebul, MD Richard Dennis Tompkins, FISCAL TECHNICIAN-C Tissues: A - Gastric mucous membrane B - Esophageal mucous membrane C - Esophageal mucous membrane Procedures: Surgery Specimen Level IV Comments: @ Ordering doctor for SUIV edited from to @ ramonita ROMERO at 02/16/18 0755 @ Submitting doctor edited from to @ ramonita ROMERO at 02/16/18 0755 HEADER OPERATION: EGD ([facility] [place]) PRE-OP DIAGNOSIS: Upper GI bleed TISSUE SUBMITTED: A. Antral biopsy for H. Pylori, B. Distal esophageal polyp, C. Distal esophageal biopsy MICROSCOPIC DIAGNOSIS A. Gastric antrum, biopsy: Tissue lost in processing. B. Distal esophageal polyp, biopsy: Polypoid fragments of benign squamous mucosa with acute inflammation. Negative for fungal organisms. Focal changes of reflux. C. Distal esophagus, biopsy: Focal changes consistent with reflux. AM:beverly 02/16/18 COMMENT A. This tissue was lost in processing. B. GMS stain with matched control supports the above diagnosis. Case has been reviewed in consultation with Dr. Escaalnte who concurs with the above diagnosis. IDC:SJ MICROSCOPIC DESCRIPTION Slides are reviewed. GROSS DESCRIPTION A. Received is one container labeled with the patient name and designated antral biopsy. The specimen consists of one irregular fragment of light baptiste soft tissue that measures 0.3 x 0.3 x 0.1 cm. The specimen is totally submitted in one cassette. B. Received is one container labeled with the patient name and designated distal esophagus. The specimen consists of multiple irregular fragments of light baptiste soft tissue that in aggregate measure 0.7 x 0.2 x 0.1 cm. The specimen is totally submitted in one cassette. C. Received is one container labeled with the patient name and designated distal esophagus. The specimen consists of two irregular fragments of light baptiste soft tissue that in aggregate measure 0.6 x 0.5 x 0.1 cm. The specimen is totally submitted in one cassette. AM:beverly 02/15/18 TC: 2 CPT: 15414l2, 95822r2
--- NOTE | 2018-02-15 11:49 | OP.ENDO_ITS ---
Patient Name: Nathaniel Tarango Procedure Date: 02/15/2018 10:50 AM Date of : 1965 Age: 52 Procedure: Upper GI endoscopy Indications: Hematemesis Providers: Mario Lora MD Medicines: See the Anesthesia note for documentation of the administered medications Complications: No immediate complications. Procedure: Pre-Anesthesia Assessment: - Prior to the procedure, a History and Physical was performed, and patient medications and allergies were reviewed. The patient's tolerance of previous anesthesia was also reviewed. The risks and benefits of the procedure and the sedation options and risks were discussed with the patient. All questions were answered, and informed consent was obtained. Prior Anticoagulants: The patient has taken no previous anticoagulant or antiplatelet agents. ASA Grade Assessment: II - A patient with mild systemic disease. After reviewing the risks and benefits, the patient was deemed in satisfactory condition to undergo the procedure. After obtaining informed consent, the endoscope was passed under direct vision. Throughout the procedure, the patient's blood pressure, pulse, and oxygen saturations were monitored continuously. The gastroscope was introduced through the mouth, and advanced to the second part of duodenum. The upper GI endoscopy was accomplished without difficulty. The patient tolerated the procedure well. Scope In: 11:30:45 AM Scope Out: 11:39:33 AM Total Procedure Duration Time 0 hours 8 minutes 48 seconds Findings: The Z-line was irregular and was found 40 cm from the incisors. Biopsies were taken with a cold forceps for histology. LA Grade A (one or more mucosal breaks less than 5 mm, not extending between tops of 2 mucosal folds) esophagitis was found 40 cm from the incisors. A medium-sized hiatal hernia was present. Diffuse mildly erythematous mucosa without bleeding was found in the gastric antrum. Biopsies were taken with a cold forceps for histology. The examined duodenum was normal. Two polyps with no bleeding were found 40 cm from the incisors. The polyp was removed with a hot snare. Resection and retrieval were complete. Impression: - Z-line irregular, 40 cm from the incisors. Biopsied. - LA Grade A reflux esophagitis. Likely source of minimal bleeding. No current bleeding Distal esophageal polyps x 2. Pathology pending - Medium-sized hiatal hernia. - Erythematous mucosa in the antrum. Biopsied. - Normal examined duodenum. No active bleeding. No esophageal tear. Findings are c/w hiatal hernia and GERD. Medical treatment will be appropriate Recommendation: - Discharge patient to home when medically stable - Resume previous diet. - Continue present medications. - Give Protonix (pantoprazole): 8 mg/hr IV by continuous infusion now but home on oral meds - Telephone my office for pathology results in 1 week. Procedure Code(s): --- Professional --- 48645, Esophagogastroduodenoscopy, flexible, transoral; with removal of tumor(s), polyp(s), or other lesion(s) by snare technique 87969, 59, Esophagogastroduodenoscopy, flexible, transoral; with biopsy, single or multiple Diagnosis Code(s): --- Professional --- K22.8, Other specified diseases of esophagus K21.0, Gastro-esophageal reflux disease with esophagitis K44.9, Diaphragmatic hernia without obstruction or gangrene K31.89, Other diseases of stomach and duodenum K92.0, Hematemesis CPT copyright 2017 [employer]. All rights reserved. The codes documented in this report are preliminary and upon third rigger review may be revised to meet current compliance requirements. Mario Lora MD 02/15/2018 11:48:56 AM This report has been signed electronically. Number of Addenda: 0 Note Initiated On: 02/15/2018 10:50 AM
[2018-02-15 13:02] LABS: Hematocrit 37.6 % (40-54); Hemoglobin 12.5 g/dl (13.0-16.5)
--- NOTE | 2018-02-15 14:28 | PCM.DC ---
- Discharge Diagnoses Current Active Problems: Current Active and Chronic Problems (Last Updated 02/15/18 @ 01:00 by Elmer Duffy MD) Acute GI bleeding (Acute) You will use the following diet at home:: No restrictions Your food should be the consistency of: Regular Your liquids should be the consistency of: Regular/Thin Discharge Activity: Return to Normal Activity Weight Bearing Status: Full weight bearing Allergies/Adverse Reactions: Allergies aspirin Allergy (Verified 02/14/18 20:30) Shortness of breath ciprofloxacin [From Cipro] Allergy (Verified 02/14/18 20:30) Unknown ciprofloxacin HCl [From Cipro] Allergy (Verified 02/14/18 20:30) Unknown doxycycline Allergy (Verified 02/14/18 20:30) Unknown Iodinated Contrast- Oral and IV Dye [Iodinated Contrast Media - IV Dye] Allergy (Verified 02/14/18 20:30) Unknown lisinopril Allergy (Verified 02/14/18 20:30) Other milk Allergy (Verified 02/14/18 20:30) Unknown Medications to take at Discharge Omeprazole [Prilosec] 40 mg PO DAILY #60 capsule 02/15/18 The following prescriptions were given: Omeprazole [Prilosec] 40 mg PO DAILY #60 capsule Primary Care Physician: Giorgi Leggett, CERTIFIED MARINE MECHANIC-C [Primary Care Provider] - Test Results: Test results from this visit will be discussed in further detail at your follow-up appointment, if applicable.
--- NOTE | 2018-02-15 14:34 | DCINST_ITS ---
- Discharge Diagnoses Current Active Problems: Current Active and Chronic Problems (Last Updated 02/15/18 @ 01:00 by Elmer Duffy MD) Acute GI bleeding (Acute) You will use the following diet at home:: No restrictions Your food should be the consistency of: Regular Your liquids should be the consistency of: Regular/Thin Discharge Activity: Return to Normal Activity Weight Bearing Status: Full weight bearing Allergies/Adverse Reactions: Allergies aspirin Allergy (Verified 02/14/18 20:30) Shortness of breath ciprofloxacin [From Cipro] Allergy (Verified 02/14/18 20:30) Unknown ciprofloxacin HCl [From Cipro] Allergy (Verified 02/14/18 20:30) Unknown doxycycline Allergy (Verified 02/14/18 20:30) Unknown Iodinated Contrast- Oral and IV Dye [Iodinated Contrast Media - IV Dye] Allergy (Verified 02/14/18 20:30) Unknown lisinopril Allergy (Verified 02/14/18 20:30) Other milk Allergy (Verified 02/14/18 20:30) Unknown Medications to take at Discharge Omeprazole [Prilosec] 40 mg PO DAILY #60 capsule 02/15/18 The following prescriptions were given: Omeprazole [Prilosec] 40 mg PO DAILY #60 capsule Primary Care Physician: Giorgi Leggett, THREAD GRINDER-C [Primary Care Provider] - Test Results: Test results from this visit will be discussed in further detail at your follow- up appointment, if applicable.
[2018-02-16 10:05] LABS: Pathologist Review Reviewed
--- NOTE | 2018-02-16 10:05 | DS.PCM_ITS ---
Discharge Date and Diagnosis Date of Admission: 02/15/18 Date of Discharge: 02/15/18 - Primary Discharge Diagnosis #1 hematemesis secondary to reflux esophagitis #2 reflux esophagitis #3 distal esophageal polyps #4 hiatal hernia #5 leukocytosis-etiology unclear Hospital Course and Treatment Operations: None Procedures: EGD Summary of Care Provided: The patient is a 52 year old M who was seen in the emergency room at [facility] with a chief complaint of nausea and vomiting and one episode of hematemesis. Workup in the emergency room included a CBC which showed an elevated white count 27,000, lactate was elevated at 4.6, chest x-ray showed no acute changes, hemoglobin was normal at 15.7. Patient was not felt to be septic. Patient was given Reglan in the emergency room, he had one episode of emesis on arrival to the emergency room which was dark and maroon colored. Patient was given morphine and IV Zofran. General surgery was consulted and patient was admitted placed into observation status on PCU, repeat H&H is were performed and there was no significant drop and hemoglobin. Patient underwent an EGD on 02/15/18 which showed reflux esophagitis, distal esophageal polyps, and no evidence of active bleeding or esophageal tear. The etiology of the patient's elevated white blood cell count was unknown. On 02/15/18, patient was seen and examined: On examination he appeared in good health and spirits. Vital signs as documented. Skin warm and dry and without overt rashes. Neck without JVD. Lungs clear. Heart exam notable for regular rhythm, normal sounds and absence of murmurs, rubs or gallops. Abdomen unremarkable and without evidence of organomegaly, masses, or abdominal aortic enlargement. Extremities nonedematous. Neuro: Cranial nerves II through XII are grossly intact, no focal motor deficits were noted. Psych: Patient was alert and oriented x3, he did not appear depressed or anxious. On 02/15/18, patient was seen and examined and discharged home in stable condition. - Physical Exam Vital Signs Temp Pulse Resp BP Pulse Ox 98 F 72 15 128/76 H 97 02/15/18 13:00 02/15/18 13:13 02/15/18 13:00 02/15/18 13:00 02/15/18 13:00 Oxygen Flow Rate (L/min) 2 Oxygen Delivery Method Room Air Weight: 79.3 kg Body Mass Index (BMI) 26.4 Intake and Output for Last 24 Hours 02/14/18 02/15/18 02/16/18 23:59 23:59 23:59 Intake Total 1767 / 1767 Output Total 325 / 325 Balance 1442 / 1442 Laboratory Tests Past 24 Hrs 02/15/18 12:45 Hgb 12.5 L Hct 37.6 L Discharge Activity: Return to Normal Activity Weight Bearing Status: Full weight bearing Home Medications: Medications to take at Discharge Omeprazole [Prilosec] 40 mg PO DAILY #60 capsule 02/15/18 Following Prescrptions Were Given to Patient: Omeprazole [Prilosec] 40 mg PO DAILY #60 capsule Primary Care Physician: Giorgi Leggett, PHOTO LAB TECHNICIAN-C [Primary Care Provider] - Disposition: Home Minutes spent on discharge:: 26 Patient Condition:: Stable Medical Necessity - Tobacco Use Smoking Status: Current every day smoker Meaningful Use Info Meaningful Use Diagnoses (Choose all that apply): None applicable Code Visit OBSV E&M: 79845 Observ/hosp same date L3
== END 2018-02-15 14:45 | disposition home or self-care (01) ==
LOC: ED 20:51 → PCU 02-15 00:11
PROVIDERS: Surgery; Admitting Provider Hospitalist; Emergency Provider Emergency Medicine; Family Provider Nurse Practitioner Family; PCP Nurse Practitioner Family; Visit Provider Internal Medicine
PROC: 0DJ08ZZ Inspection of Upper Intestinal Tract, Via Natural or Artificial Opening Endoscopic (ICD-10-PCS; CPT 43235; principal; 2018-02-15 11:25)
DX: K21.0 Gastro-esophageal reflux disease with esophagitis (principal); K44.9 Diaphragmatic hernia without obstruction or gangrene; D72.829 Elevated white blood cell count, unspecified; K92.0 Hematemesis; J44.9 Chronic obstructive pulmonary disease, unspecified; F17.200 Nicotine dependence, unspecified, uncomplicated; F12.10 Cannabis abuse, uncomplicated; J45.909 Unspecified asthma, uncomplicated; R20.0 Anesthesia of skin
CPT/HCPCS: 43239; 43251; 36415; 71045; 74176; 80048; 80053; 83605; 83690; 84484; 85014; 85018; 85025; 85027; 85610; 85730; 86850; 86900; 88305; 88342; 93005; 96361; 96365; 96366; 96375; 96376; 97802; 99218; 99282; J7030; A4216; G0378; J2405; J3490

== ENCOUNTER → 2019-01-10 18:05 | Outpatient (CLI) | payer MEDICARE, SELFPAY ==
[2019-01-10 15:18] VITALS: BMI 26.4
== END ==
PROVIDERS: Family Provider Nurse Practitioner Family; PCP Nurse Practitioner Family; Referring Provider Physician Assistant; Visit Provider Physician Assistant
DX: J02.9 Acute pharyngitis, unspecified (principal)
CPT/HCPCS: 87070

== ENCOUNTER → 2019-01-17 14:47 | Outpatient (CLI) | payer MEDICARE, SELFPAY ==
[2019-01-10 15:18] VITALS: BMI 26.4
[2019-01-17 15:18] LABS: Absolute Lymphocyte Count 1.27 X10^3/uL (0.83-4.51); Absolute Neutrophil Count 4.6 X10^3/uL (2.0-7.7); Basophil# 0.03 X10^3/uL; Basophil% 0.5 % (0-1); Eosinophil# 0.09 X10^3/uL; Eosinophils% 1.4 % (0-5); Hematocrit 44.7 % (40-54); Lymphocyte # 1.27 X10^3/ul (4.0); Lymphocyte % 19.6 % (19-41); Mean Corp Hgb Conc 33.6 g/dL (32-36); Mean Corpuscular Hgb 31.6 pg (27.0-32.0); Mean Corpuscular Volume 94.3 fL (80-94); Mean Platelet Vol. 9.4 fl (6.2-12.0); Monocyte# 0.47 X10^3/uL; Monocyte% 7.2 % (0-10); NRBC Flagged by Analyzer 0 % (0-5); Neutrophil % 70.8 % (47-70); Platelet Count 290 K/mm3 (150-450); RBC Distribution Width CV 12.9 % (11.6-14.6); RBC Distribution Width SD 44.5 fl (35.1-43.9); Red Blood Count 4.74 M/mm3 (4.6-6.2); White Blood Count 6.5 K/mm3 (4.4-11.0)
[2019-01-17 15:34] LABS: Erythrocyte Sedimentation Rate 8 mm/hr (0-20)
[2019-01-17 15:53] LABS: ALB/GLOB Ratio 1.3 RATIO (0.9-2.4); AST(SGOT) 15 U/L (15-37); Alanine Aminotransfer ALT/SGPT 30 U/L (16-61); Albumin, Serum 3.9 g/dL (3.2-5.0); Alkaline Phosphatase 77 U/L (45-117); Amylase 72 U/L (25-115); Anion Gap 5 (5-15); BUN 17 mg/dL (7-18); BUN/Creat Ratio 18.6 RATIO (10-20); CRP < 2.90 mg/L (0.0-3.0); Calcium,Total 8.9 mg/dL (8.5-10.1); Chloride 109 mmol/L (98-107); Creatinine, Serum 0.91 mg/dL (0.70-1.30); EST Glomerular Filtration Rate 92 mL/min (>60); Est Glom Filt Rate - Afr Amer 111 mL/min (>60); Glucose 99 mg/dL (74-106); Lipase 137 U/L (73-393); Potassium 4.3 mmol/L (3.5-5.1); Protein, Total 6.9 g/dL (6.4-8.2); Sodium Level 141 mmol/L (136-145)
== END ==
PROVIDERS: Family Provider Nurse Practitioner Family; PCP Nurse Practitioner Family; Referring Provider Surgery; Visit Provider Surgery
DX: R10.33 Periumbilical pain (principal); R19.7 Diarrhea, unspecified
CPT/HCPCS: 36415; 80053; 82150; 83690; 85025; 85652; 86140

== ENCOUNTER → 2019-01-18 13:19 | Outpatient (CLI) | payer MEDICARE, SELFPAY ==
[2019-01-17 16:27] VITALS: BMI 26.4
[2019-01-23 15:36] LABS: Fats, Neutral Normal (.); Fats, Total Normal (.)
== END ==
PROVIDERS: Family Provider Nurse Practitioner Family; PCP Nurse Practitioner Family; Referring Provider Surgery; Visit Provider Surgery
DX: R19.7 Diarrhea, unspecified (principal); R10.33 Periumbilical pain
CPT/HCPCS: 82705; 83630; 87493; 87506

== ENCOUNTER 2019-01-21 05:20 | Day surgery (SDC) | payer MEDICARE, SELFPAY ==
--- NOTE | 2019-01-01 04:59 | HP_ITS ---
Intake Vital Signs 01/01/19 Body Mass Index (BMI) 26.4 01/01/19 Height 5 ft 8.5 in 01/01/19 Weight: 184 lb 5 oz 01/01/19 Body Mass Index (BMI) 27.6 01/01/19 Blood Pressure 145/93 H 01/01/19 Blood Pressure Location Rt brachial 01/01/19 Blood Pressure Position Sitting 01/01/19 Respiratory Rate 20 H 01/01/19 Pulse Rate 61 01/01/19 Pulse Ox 96 Intake Visit Reasons: Umbilical Hernia Chief Complaint: umbilical hernia Vascular Neurologist Required: No Is patient in pain?: No Allergies aspirin Allergy (Verified 01/01/19 14:28) Shortness of breath ciprofloxacin [From Cipro] Allergy (Verified 01/01/19 14:28) Unknown ciprofloxacin HCl [From Cipro] Allergy (Verified 01/01/19 14:28) Unknown doxycycline Allergy (Verified 01/01/19 14:28) Unknown Iodinated Contrast Media [Iodinated Contrast Media - IV Dye] Allergy (Verified 01/01/19 14:28) Unknown lisinopril Allergy (Verified 01/01/19 14:28) Other milk Allergy (Verified 01/01/19 14:28) Unknown Medications Omeprazole [Prilosec] 40 mg PO DAILY #60 cap 02/15/18 [Rx Confirmed 01/01/19] FOR[facility], LAT[facility] Medical History (Updated 01/01/19 @ 16:57 by Mario Lora MD) Umbilical hernia (Acute) Periumbilical abdominal pain (Acute) Asthma (Acute) DJD (degenerative joint disease), cervical (Acute) Emphysema lung (Acute) GERD (gastroesophageal reflux disease) (Acute) IBS (irritable bowel syndrome) (Acute) Lactose intolerance (Acute) Sleep apnea (Acute) COPD (chronic obstructive pulmonary disease) (Chronic) Surgical History (Updated 01/01/19 @ 14:27 by Sheyla Villatoro) History of hernia repair (Acute) History of hernia repair (Acute) History of neck surgery (Acute) History of neck surgery (Acute) History of neck surgery (Acute) Family History (Updated 01/01/19 @ 14:27 by Sheyla Villatoro) Father Asthma Diabetes Mother Asthma Social History (Updated 01/01/19 @ 16:59 by Mario Lora MD) Smoking Status: Current every day smoker HPI HPI HPI: MIGUEL ANGEL AGUIRRE, is a 53 M who presents to the office today for HPI HPI Surgical H&P: Yes HPI: MIGUEL ANGEL AGUIRRE, is a 53 M who presents to the office today for surgery consultation regarding periumbilical abdominal pain. 53-year-old gentleman. He chews tobacco. He is chronically disabled from back and shoulder problems. He is able to ride a bicycle. He states that he has had pneumonia on several occasions and he claims that it has been of undetermined etiology. On further discussion with him he claims that in the past he has had some material prolapsing from his rectum which was excised. He will very infrequently have bright red rectal bleeding. Claims that his mother had multiple colon polyps. He has never had a colonoscopy. He is being referred by his primary care provider Chivo Leggett CNP for surgical consultation regarding what is felt to be an umbilical hernia and a written compromise surgical consult and recommendations will be returned to him. ROS General General: Yes fatigue; no weight change, appetite, colon cancer, breast cancer or weakness HEENT HEENT: No difficulty swallowing, eye injury, eye surgery, swollen glands or hoarseness Endo Endocrine: No thyroid disease, diabetes mellitus, thyroid cancer, Hair loss, heat intolerance or cold intolerance Cardio Cardiovascular: No murmur, pacemaker, heart disease, atrial fibrillation, high blood pressure, heart attack, heart stent, palpitations, shortness of breat with exertion or chest pain Resp Respiratory: No shortness of breath, Yes sleep apnea, No cough, Yes COPD, Yes asthma, Yes emphysema, No wheezing Gastro Gastrointestinal: Yes abdominal pain, No nausea or vomiting, Yes diarrhea, No constipation, No blood in stool, Yes acid reflux, No hemorrhoids, No ulcers, No gallbladder problem, No black,tarry stools Chris Hematologic: No blood thinners, No blood disorders, No bleeding, No anemia, No blood clots Neuro Neurologic: No weakness Exam Const General: cooperative, comfortable, no acute distress Nutritional Appearance: average body habitus Orientation: alert, oriented x3 HENMT Head: atraumatic Chest Chest palpation & inspection: normal inspection of the chest Resp Effort & Inspection: normal respiratory effort Auscultation: clear to auscultation bilaterally Cardio Rate: regular rate Rhythm: regular rhythm Heart Sounds: no murmurs GI Palpation: soft Auscultation: normal bowel sounds Other: Umbilical hernia is noted with tissue protruding slightly to the right. Not reducible mildly tender. No erythema. Skin General: no rashes or lesions noted Neuro Cognition: normal cognition Extrem General: no calf tenderness bilaterally Psych Affect: normal affect Assessment & Plan Problems 1. Periumbilical abdominal pain R10.33 2. Umbilical hernia without obstruction and without gangrene K42.9 Plan The patient has never had a previous colonoscopy and I am recommending a colonoscopy with possible biopsy or polypectomy as indicated. He has had an opportunity to ask and have questions answered. We will schedule and proceed at his discretion. Subsequently I am recommending a umbilical herniorrhaphy with mesh. In detail I have described utilization of a ventralex product. He has had an opportunity to ask and have questions answered. We will schedule and proceed at his discretion. He is aware that subsequently he will have to allow for resolution. He does a significant amount of bike riding and walking. He is aware that he will have to allow the mesh repair chance to heal and resolve. I very much appreciate the kind opportunity of assisting with the surgical care. We will schedule and proceed at his discretion. CC: Chivo Leggett, LENCHO Lora M.D., F.A.C.S. Coding Level of Care Code 88702 Diagnoses Periumbilical abdominal pain R10.33 Umbilical hernia without obstruction and without gangrene K42.9 ??Obstruction and gangrene presence: without obstruction or gangrene 01/01/19 9134 <Electronically signed by Mario jackson MD> Date _ Mario Lora MD I have re-examined the patient. There are no clinical changes since date of exam.
[2019-01-01 14:29] VITALS: BMI 26.4
[2019-01-17 16:27] VITALS: BMI 26.4
[2019-01-21] VITALS (7 sets, daily range): BP systolic 86–140; BP diastolic 59–91; PULSE 56–74; RESP 16–18; TEMP 36.1–36.4; O2SAT 94–97; BMI 27.1
[2019-01-21] MEDS: Lactated Ringers 1,000 ML 100 ML IV (06:02)
--- NOTE | 2019-01-21 06:30 | EGD_PTH ---
PATIENT: MIGUEL ANGEL AGUIRRE LOC: EN U#:[id number] AGE/SX: 53/M ROOM: RE01/21/[address]: Dr. Mario Lora MD : 1965 BED: DIS: 01/21/2019 SPEC #: [id number] RECD: 01/21/19 10:08 STATUS: HOMER LAMAR #: [id number] NAHED: 01/21/19 06:[address]: Mario Lora DEPT: SURGICAL PATHOLOGY RECD BY: Niko Tang ENTERED: 01/21/19 11:17 SP TYPE: EGD BIOPSY TAMI DR: Giorgi Leggett, OYSTER HARVESTER-C Tissues: A - Gastric mucous membrane B - Esophageal mucous membrane Procedures: Surgery Specimen Level IV HEADER OPERATION: Colonoscopy, EGD ([facility] [place]) PRE-OP DIAGNOSIS: GERD, abdominal pain and hernia TISSUE SUBMITTED: A. Antral biopsy for H. pylori and pathology, B. Distal esophageal biopsy MICROSCOPIC DIAGNOSIS A. Antral biopsy: Mild gastritis. See microscopic description and comment. B. Distal esophageal biopsy: A fragment of squamous epithelium with minimal chronic inflammation and congestion. ANGELO:naomi 01/22/19 COMMENT A. The results of immunohistochemistry for Helicobacter pylori will be reported separately ([id number]). MICROSCOPIC DESCRIPTION Slides are reviewed. A. The specimen shows fragments of gastric mucosa with chronic inflammatory cell infiltrates in the lamina propria consisting of lymphocytes and plasma cells, consistent with mild chronic gastritis. GROSS DESCRIPTION A - Received in fixative is one container labeled with the patient's name and designated antral biopsy. The specimen consists of one irregular fragment of light baptiste soft tissue that measures 0.3 x 0.3 x 0.1 cm. The specimen is totally submitted in one cassette. B - Received in fixative is one container labeled with the patient's name and designated distal esophageal biopsy. The specimen consists of one irregular fragment of light baptiste soft tissue that measures 0.4 x 0.3 x 0.1 cm. The specimen is totally submitted in one cassette. / ANGELO:naomi 01/21/19 TC:3 CPT: 28188 x2
--- NOTE | 2019-01-21 06:30 | IMM_PTH ---
PATIENT: MIGUEL ANGEL AGUIRRE LOC: [facility] U#:[id number] AGE/SX: 53/M ROOM: RE01/21/[address]: Dr. Mario Lora MD : 1965 BED: DIS: 01/21/2019 SPEC #: [id number] RECD: 01/21/19 11:18 STATUS: HOMER REAshley #: [id number] NAHED: 01/21/19 06:[address]: Mario Lora DEPT: IMMUNOHISTOCHEMISTRY RECD BY: Katie Luciano ENTERED: 01/21/19 11:18 SP TYPE: IMMUNO OTHR DR: Giorgi Leggett, MANAGER UI-C Tissues: A - Stomach, NOS Procedures: H Pylori (initial) PHYSICIAN & INSTITUTION [place] [address] SPECIMEN INFORMATION: Tissue Source: A - Antral biopsy Clinical Info: GERD; abdominal pain, hernia Specimen Number: [id number] CPT code: 29425 METHODOLOGY: Deparaffinized sections of prefer/formalin-fixed tissue or PAP/DQ stained slides are incubated with monoclonal/polyclonal antibodies/oligonucleotide probes. Localization is made via biotin free immunoperoxidase method. Appropriate controls are performed and reacted as expected. Results on target cell population are indicated in the following table: RESULTS: ANTIBODY / CLONE RESULT Block A H Pylori (polyclonal) negative These tests were developed and their performance characteristics determined by [facility]. They may not have been cleared or approved by the U.S. Food and Drug Administration. The FDA has determined that such clearance or approval is not necessary. INTERPRETATION: A. Antral biopsy: Negative for Helicobacter pylori organisms. SJ:naomi 01/22/19
--- NOTE | 2019-01-21 06:36 | HP.PCM_ITS ---
Problem List (1) Periumbilical abdominal pain Status: Acute (2) Acute GI bleeding Status: Acute History and Physical Date of Admission: 01/21/19 Intake Visit Reasons: diarrhea/ nausea Chief Complaint: diarrhea/ abd pain Allergies lemon Allergy (Severe, Verified 01/17/19 15:16) SOB aspirin Allergy (Verified 01/17/19 15:16) Shortness of breath ciprofloxacin [From Cipro] Allergy (Verified 01/17/19 15:16) Unknown ciprofloxacin HCl [From Cipro] Allergy (Verified 01/17/19 15:16) Unknown doxycycline Allergy (Verified 01/17/19 15:16) Unknown Iodinated Contrast Media [Iodinated Contrast Media - IV Dye] Allergy (Verified 01/17/19 15:16) Unknown lisinopril Allergy (Verified 01/17/19 15:16) Other milk Allergy (Verified 01/17/19 15:16) Unknown [facility] Medical History (Updated 01/01/19 @ 16:57 by Mario Lora MD) Umbilical hernia (Acute) Periumbilical abdominal pain (Acute) Asthma (Acute) DJD (degenerative joint disease), cervical (Acute) Emphysema lung (Acute) GERD (gastroesophageal reflux disease) (Acute) IBS (irritable bowel syndrome) (Acute) Lactose intolerance (Acute) Sleep apnea (Acute) COPD (chronic obstructive pulmonary disease) (Chronic) Surgical History (Updated 01/01/19 @ 14:27 by Sheyla Villatoro) History of hernia repair (Acute) History of hernia repair (Acute) History of neck surgery (Acute) History of neck surgery (Acute) History of neck surgery (Acute) Family History (Updated 01/01/19 @ 14:27 by Sheyla Villatoro) Father Asthma Diabetes Mother Asthma Social History (Updated 01/17/19 @ 16:34 by Ana Garvin PA-C) Smoking Status: Current every day smoker HPI HPI HPI: MIGUEL ANGEL AGUIRRE, is a 53 M who presents to the office today for HPI HPI Surgical H&P: Yes HPI: MIGUEL ANGEL AGUIRRE, is a 53 M who presents to the office today for increased diarrhea, abdominal pain, nausea, vomiting. Patient was scheduled to have a colonoscopy. Patient was noted to have a sore throat and flu-like symptoms the day prior to his scheduled colonoscopy. Patient rescheduled his colonoscopy to the following week. Patient was noted to not be able to complete his bowel prep and was a no show to his 2nd scheduled colonoscopy. Patient states he has been lactose intolerant for years. He notes he has had diarrhea, nausea, vomiting for years. He is unsure of the exact reason for his symptoms. Patient states he has had previous upper scopes however he is unsure of where these scopes have been completed. Patient notes he has diarrhea upwards of 17 times per day. He notes within the last 6 months his children have moved back into his house which has been very stressful for him. He has never had a colonoscopy. He notes within the last several days the nausea, vomiting has increased. His bowel habits have changed and increase in diarrhea has occurred over the last few years. He also notes having a hernia at the umbilicus which causes intermittent pain. He is unsure if he has had weight loss. Patient's previous history per Dr. Lora: MIGUEL ANGEL AGUIRRE, is a 53 M who presents to the office today for surgery consultation regarding periumbilical abdominal pain. 53-year-old gentleman. He chews tobacco. He is chronically disabled from back and shoulder problems. He is able to ride a bicycle. He states that he has had pneumonia on several occasions and he claims that it has been of undetermined etiology. On further discussion with him he claims that in the past he has had some material prolapsing from his rectum which was excised. He will very infrequently have br ight red rectal bleeding. Claims that his mother had multiple colon polyps. He has never had a colonoscopy. He is being referred by his primary care provider Chivo Leggett CNP for surgical consultation regarding what is felt to be an umbilical hernia and a written compromise surgical consult and recommendations will be returned to him. Exam GI Other: Abdomen- tender at the umbilicus. No prominent bulge noted. Assessment & Plan Problems 1. Umbilical hernia without obstruction and without gangrene K42.9 2. Diarrhea, unspecified type R19.7 3. Abdominal pain, unspecified abdominal location R10.9 4. Nausea and vomiting, intractability of vomiting not specified, unspecified vomiting type R11.[address] Lora will plan to perform upper and lower endoscopy. Procedure details, risks and benefits have been reviewed. Patient will obtain CBC, CMP, amylase, SED rate today. Patient and his have had the opportunity to ask and have questions answered. Patient verbally understands and agrees with the plan. We will plan to schedule an umbilical hernia repair at a later date. Coding Level of Care Code No Charge Diagnoses Umbilical hernia without obstruction and without gangrene K42.9 ??Obstruction and gangrene presence: without obstruction or gangrene Diarrhea, unspecified type R19.7 ??Diarrhea type: unspecified type Abdominal pain, unspecified abdominal location R10.9 ??Abdominal location: unspecified location Nausea and vomiting, intractability of vomiting not specified, unspecified vomiting type R11.2 ??Vomiting type: unspecified ??Vomiting Intractability: unspecified 01/17/19 1634 <Electronically signed by Ana carcamo PA-C> Date _ Ana Garvin PA-C Cosigner Signature: Date (if applicable) CC: ~ I have re-examined the patient. There are no clinical changes since date of exam .
--- NOTE | 2019-01-21 07:05 | OP.ENDO_ITS ---
01/21/2019 Giorgi Leggett Re : Upper GI endoscopy procedure for Nathaniel Santor Oleksandr This procedure was performed on Monday, January 21, 2019. My impressions and recommendations are as follows: Impressions : - Z-line variable, 43 cm from the incisors. Biopsied. - Small hiatal hernia. - Erythematous mucosa in the antrum. Biopsied. - Normal examined duodenum. Recommendations : - Await pathology results. - Discharge patient to home. - Resume previous diet. - Continue present medications. - Telephone my office for pathology results in 1 week. Findings minimal and do not correlate with complaints of abdominal pain My findings are described in the full procedure note, which is enclosed. If I can be of further assistance, please feel free to contact me at Doctor phone number(s): Work: . Sincerely, Mario Lora MD 01/21/2019 7:04:40 AM This report has been signed electronically.
--- NOTE | 2019-01-21 07:09 | OP.ENDO_ITS ---
01/21/2019 Giorgi Leggett Re : Colonoscopy procedure for Nathaniel Santor Oleksandr This procedure was performed on Monday, January 21, 2019. My impressions and recommendations are as follows: Impressions : - Preparation of the colon was poor. - Enlarged prostate found on digital rectal exam. - Stool in the entire examined colon. - No specimens collected. Recommendations : - Discharge patient to home. - Resume previous diet. - Continue present medications. - Repeat colonoscopy in 1 year for screening purposes. Inadequate to make a decision regarding the cause of abdominal pain Will offer pt a repeat attempt but he states he cant take the prep My findings are described in the full procedure note, which is enclosed. If I can be of further assistance, please feel free to contact me at Doctor phone number(s): Work: . Sincerely, Mario Lora MD 01/21/2019 7:09:11 AM This report has been signed electronically.
== END 2019-01-21 07:50 | disposition home or self-care (01) ==
LOC: EN 05:20 → AC 05:21
PROVIDERS: Family Provider Nurse Practitioner Family; PCP Nurse Practitioner Family; Referring Provider Nurse Practitioner Family; Visit Provider Surgery
PROC: 0DJD8ZZ Inspection of Lower Intestinal Tract, Via Natural or Artificial Opening Endoscopic (ICD-10-PCS; CPT 45378; principal; 2019-01-21 06:25)
DX: K29.70 Gastritis, unspecified, without bleeding (principal); K44.9 Diaphragmatic hernia without obstruction or gangrene; K21.9 Gastro-esophageal reflux disease without esophagitis; K42.9 Umbilical hernia without obstruction or gangrene; N40.0 Benign prostatic hyperplasia without lower urinary tract symptoms; R10.13 Epigastric pain; R10.33 Periumbilical pain; J44.9 Chronic obstructive pulmonary disease, unspecified; F17.220 Nicotine dependence, chewing tobacco, uncomplicated; F12.90 Cannabis use, unspecified, uncomplicated; Z83.71 Family history of colonic polyps
CPT/HCPCS: 43239; 45378; 88305; 88342; J7120; J2405

== ENCOUNTER → 2019-12-12 15:52 | Outpatient (CLI) | payer MEDICARE, SELFPAY ==
[2019-02-05 13:09] VITALS: BMI 27.1
[2019-12-12 17:51] LABS: Hematocrit 43.7 % (40-54); Hemoglobin 14.7 g/dL (13.0-16.5); Mean Corp Hgb Conc 33.6 g/dL (32-36); Mean Corpuscular Hgb 31.3 pg (27.0-32.0); Mean Corpuscular Volume 93.2 fL (80-94); Platelet Count 320 K/mm3 (150-450); RBC Distribution Width CV 12.8 % (11.6-14.6); RBC Distribution Width SD 43.8 fl (35.1-43.9); Red Blood Count 4.69 M/mm3 (4.6-6.2); White Blood Count 7.3 K/mm3 (4.4-11.0)
[2019-12-12 18:52] LABS: ALB/GLOB Ratio 1.3 RATIO (0.9-2.4); AST(SGOT) 15 U/L (15-37); Alanine Aminotransfer ALT/SGPT 26 U/L (16-61); Alkaline Phosphatase 73 U/L (45-117); Anion Gap 8 (5-15); BUN 17 mg/dL (7-18); BUN/Creat Ratio 20.1 RATIO (10-20); Chloride 106 mmol/L (98-107); Creatinine, Serum 0.84 mg/dL (0.70-1.30); EST Glomerular Filtration Rate 100 mL/min (>60); Est Glom Filt Rate - Afr Amer 121 mL/min (>60); Globulin 3.1 g/dL (2.2-4.2); Glucose 77 mg/dL (74-106); Potassium 3.8 mmol/L (3.5-5.1); Protein, Total 7.1 g/dL (6.4-8.2); Sodium Level 139 mmol/L (136-145)
[2019-12-14 08:42] LABS: H. Pylori Antibody (IgG) 0.51 (0.00-0.79)
== END ==
PROVIDERS: PCP Nurse Practitioner Family; Referring Provider Nurse Practitioner Family; Visit Provider Nurse Practitioner Family
DX: R10.13 Epigastric pain (principal); R10.31 Right lower quadrant pain
CPT/HCPCS: 36415; 80053; 85027; 86677

== ENCOUNTER → 2019-12-25 17:15 | Outpatient (CLI) | payer MEDICARE, SELFPAY ==
[2019-02-05 13:09] VITALS: BMI 27.1
--- NOTE | 2019-12-25 17:21 | CT_ITS ---
STUDY: CT ABDOMEN AND PELVIS WITHOUT CONTRAST REASON FOR EXAM: Male, 54 years old. RLQ PAIN X 3-4 MON, KNOWN UMBILICAL HERNIA, PREV SURG-HERNIA REPAIRS X 2 -- UNABLE TO GIVE IV CONTRAST D/T IODINE ALLERGY WITH BREATHING DIFFICULTY- GAVE ORAL ONLY RADIATION DOSAGE (If Supplied By Facility): CTDIvol = ( 7.26 ) mGy, DLP = ( 384.61 ) mGycm TECHNIQUE: Transaxial images were obtained from the dome of the diaphragm to the symphysis pubis with oral contrast, and without intravenous contrast. Sagittal and coronal images were reconstructed. Individualized dose optimization techniques were used for this CT. COMPARISON: Comparison is made with prior study dated 02/14/2018. FINDINGS: The visualized lung bases are unremarkable. The visualized portions of the heart are within normal limits. 1.4 cm cyst in the anterior aspect of the left lobe of the liver. Normal gallbladder and extrahepatic biliary system. Normal spleen. Normal pancreas. There is a small, circumscribed, smooth, low attenuation right adrenal mass, consistent with an adrenal adenoma. This measures 2.7 cm x 1.5 cm. Normal left adrenal gland. Normal right kidney. Normal left kidney. Normal visualized stomach. Normal small intestine. There are multiple colonic diverticula consistent with diverticulosis. There is evidence of a thickening of the wall of the sigmoid colon suggestive of a possible mild diverticulitis although no increased markings are seen in the surrounding fat. The appendix is visualized and appears normal. There is scattered atherosclerotic calcification of the abdominal aorta, without a demonstrated aneurysm. Normal inferior vena cava. Normal retroperitoneum. Normal urinary bladder. There is a small umbilical hernia containing fat. There are diffuse degenerative changes of the visualized lumbar spine. CT/Abdomen/Pelvis without Cont IMPRESSION: Small cyst in the left lobe of the liver. Thickening of the sigmoid colon with sigmoid diverticula suggesting mild diverticulitis although no increased markings are seen in the surrounding peritoneal fat. Electronically Signed: Maximo Cardenas, at 8:33 EDT , Service support ,
== END ==
PROVIDERS: PCP Nurse Practitioner Family; Referring Provider Nurse Practitioner Family; Visit Provider Nurse Practitioner Family
DX: K21.9 Gastro-esophageal reflux disease without esophagitis (principal); R10.13 Epigastric pain; R10.31 Right lower quadrant pain
CPT/HCPCS: 74176

== ENCOUNTER → 2020-04-16 15:37 | Outpatient (CLI) | payer MEDICARE, SELFPAY ==
[2019-02-05 13:09] VITALS: BMI 27.1
--- NOTE | 2020-04-16 15:40 | CT_ITS ---
STUDY: CT ABDOMEN WITHOUT CONTRAST REASON FOR EXAM: Male, 55 years old. ADRENAL MASS, RIGHT. UMBILLICAL HERNIA. RADIATION DOSAGE (If Supplied By Facility): CTDIvol = ( 10.59 ) mGy, DLP = ( 389.61 ) mGycm TECHNIQUE: Transaxial images were obtained without intravenous contrast, and oral contrast. Sagittal and coronal images were reconstructed. 389.61 Individualized dose optimization techniques were used for this CT. COMPARISON: 12/25/2019 FINDINGS: There is minor interstitial thickening at the lung bases.. The visualized portions of the heart are within normal limits. The liver is normal size and homogeneous attenuation. There is a small cyst in the left lobe. Bile ducts are nondilated. Normal gallbladder and extrahepatic biliary system. Normal spleen. Normal pancreas. There is a small hypoattenuated right adrenal nodule measuring approximately 2.7 x 1.4 cm most likely benign and unchanged in size since previous exam. The left adrenal is normal. Normal right kidney. Normal left kidney. Normal visualized stomach. Normal small intestine. Minor diverticular changes of the colon without evidence for acute diverticulitis. The appendix is visualized and appears normal. Mild atherosclerotic changes of the aorta without evidence for aneurysm.. Normal inferior vena cava. Normal retroperitoneum. Tiny fat-containing umbilical hernia.. Lumbar spine demonstrates mild spondylosis. CT/Abdomen without IV Contrast IMPRESSION: Persistent right adrenal nodule most likely benign adenoma unchanged in size since previous study. Small left hepatic cyst. No acute abnormality or other significant change Electronically Signed: Dale Grier MD at 16:06 EST , Service support ,
== END ==
LOC: CT 15:38
PROVIDERS: PCP Nurse Practitioner Family; Referring Provider Nurse Practitioner Family; Visit Provider Nurse Practitioner Family
DX: E27.8 Other specified disorders of adrenal gland (principal)
CPT/HCPCS: 74150

== ENCOUNTER → 2020-11-10 16:51 | Outpatient (CLI) | payer MEDICARE, SELFPAY ==
[2019-02-05 13:09] VITALS: BMI 27.1
--- NOTE | 2020-11-10 16:58 | RAD_ITS ---
STUDY: X-RAY - RIGHT SCAPULA REASON FOR EXAM: Male, 55 years old. SHOULDER PAIN TECHNIQUE: 2 view(s) of the scapula were obtained. COMPARISON: Chest x-ray dated February 14, 2018 FINDINGS: Normal scapula, including the osseous glenoid rim, acromion, scapular neck, spine, coracoid process, and visualized body. Normal glenohumeral articulation. Normal acromioclavicular joint. Normal visualized humeral head. Normal visualized pulmonary apex. There is no demonstrated scapular fracture. There is no demonstrated osseous destructive process of the scapula. RAD/Scapula IMPRESSION: Normal plain film x-ray examination of the scapula. Electronically Signed: Giuliano Flor MD at 17:10 EDT , Service support ,
== END ==
PROVIDERS: PCP Nurse Practitioner Family; Referring Provider Nurse Practitioner Family; Visit Provider Nurse Practitioner Family
DX: S49.91XA Unspecified injury of right shoulder and upper arm, initial encounter (principal)
CPT/HCPCS: 73010

== ENCOUNTER → 2022-01-18 | Outpatient (CLI) | payer MEDICARE, SELFPAY ==
--- NOTE | 2022-01-18 16:37 | RAD_ITS ---
STUDY: X-RAY CHEST REASON FOR EXAM: Male, 56 years old. Upper respiratory infection. TECHNIQUE: PA and lateral views of the chest. COMPARISON: 02/14/2018. FINDINGS: The lungs are clear and expanded. There is no demonstrated pleural abnormality. Normal size heart. Normal mediastinum and devan. Normal visualized pulmonary arteries. Normal visualized aortic arch and descending thoracic aorta. Mild degenerative changes are thoracic spine. Again seen is anterior fusion of lower cervical spine. Normal visualized ribs, clavicles, and shoulders. There is no demonstrated abnormality of the visualized soft tissue structures of the upper abdomen. RAD/Chest PA and Lateral IMPRESSION: Degenerative changes, as described above. No demonstrated acute cardiopulmonary process. Electronically Signed: Mayo Be DO at 18:54 EDT ,
[2022-01-18 16:46] LABS: Hemoglobin 16.3 g/dL (13.0-16.5); Mean Corpuscular Hgb 31.8 pg (27.0-32.0); Mean Corpuscular Volume 93.8 fL (80-94); Mean Platelet Vol. 9.3 fl (6.2-12.0); Platelet Count 316 K/mm3 (150-450); RBC Distribution Width SD 45.1 fl (35.1-43.9); Red Blood Count 5.12 M/mm3 (4.6-6.2)
[2022-01-18 17:06] LABS: ALB/GLOB Ratio 1.1 RATIO (0.9-2.4); AST(SGOT) 16 U/L (15-37); Alanine Aminotransfer ALT/SGPT 33 U/L (16-61); Albumin, Serum 4.1 g/dL (3.2-5.0); Alkaline Phosphatase 87 U/L (45-117); Anion Gap 7 (5-15); BUN 15 mg/dL (7-18); BUN/Creat Ratio 15.6 RATIO (10-20); Calcium,Total 9.7 mg/dL (8.5-10.1); Chloride 104 mmol/L (98-107); Creatinine, Serum 0.96 mg/dL (0.70-1.30); EST Glomerular Filtration Rate 85 mL/min (>60); Est Glom Filt Rate - Afr Amer 103 mL/min (>60); Globulin 3.8 g/dL (2.2-4.2); Glucose 103 mg/dL (74-106); Potassium 3.9 mmol/L (3.5-5.1); Protein, Total 7.9 g/dL (6.4-8.2); Sodium Level 138 mmol/L (136-145)
== END | disposition home or self-care (01) ==
LOC: LAB 16:24
PROVIDERS: PCP Nurse Practitioner Family; Referring Provider Nurse Practitioner Family; Visit Provider Nurse Practitioner Family
DX: J06.9 Acute upper respiratory infection, unspecified (principal); R06.2 Wheezing; R19.7 Diarrhea, unspecified
CPT/HCPCS: 36415; 71046; 80053; 85027

== ENCOUNTER → 2022-08-19 | Outpatient (CLI) | payer MEDICARE, SELFPAY ==
--- NOTE | 2022-08-19 15:00 | RAD_ITS ---
STUDY: X-RAY CHEST REASON FOR EXAM: Male, 57 years old. COUGH WITH WHEEZING TECHNIQUE: Frontal and lateral views of the chest. COMPARISON: 01/18/2022. FINDINGS: The lungs are clear and expanded. There is no demonstrated pleural abnormality. Normal size heart. Normal mediastinum and devan. Normal visualized pulmonary arteries. Normal visualized aortic arch and descending thoracic aorta. Normal visualized thoracic spine. Normal visualized ribs, clavicles, and shoulders. There is no demonstrated abnormality of the visualized soft tissue structures of the upper abdomen. RAD/Chest PA and Lateral IMPRESSION: Normal x-ray examination of the chest. Electronically Signed: Marty Cedeño MD at 22:23 EDT ,
--- NOTE | 2022-08-19 15:00 | RAD_ITS ---
INDICATION: Bilateral hip pain EXAMINATION/TECHNIQUE: X-RAY - XR Hips Bilateral with Pelvis when performed; 2 Views COMPARISON: None. FINDINGS: PELVIC BONES: No displaced fracture, destructive or sclerotic lesions. Note that overlapping bowel shadows may however obscure fine detail. Sacroiliac joints are unremarkable. No widening of the pubic symphysis. HIPS: The articular structures are unremarkable. No displaced fracture seen in this frontal view. SOFT TISSUES: No soft tissue swelling or gas. RAD/Hips B/L min 2 views w/ Pelvis IMPRESSION: No evidence of displaced pelvic or hip fracture. Electronically Signed: Edenilson Solano (Brooks), at 18:09 EDT Reading Location ID and State: [facility] / [place] , Service support ,
[2022-08-19 15:30] LABS: Hematocrit 45.2 % (40-54); Hemoglobin 15.2 g/dL (13.0-16.5); Mean Corp Hgb Conc 33.6 g/dL (32-36); Mean Corpuscular Hgb 31.5 pg (27.0-32.0); Mean Corpuscular Volume 93.8 fL (80-94); Mean Platelet Vol. 9.6 fl (6.2-12.0); Platelet Count 327 K/mm3 (150-450); RBC Distribution Width CV 13.7 % (11.6-14.6); RBC Distribution Width SD 47.6 fl (35.1-43.9); Red Blood Count 4.82 M/mm3 (4.6-6.2); White Blood Count 9.1 K/mm3 (4.4-11.0)
[2022-08-19 16:07] LABS: ALB/GLOB Ratio 1.1 RATIO (0.9-2.4); AST(SGOT) 20 U/L (15-37); Alanine Aminotransfer ALT/SGPT 39 U/L (16-61); Albumin, Serum 3.7 g/dL (3.2-5.0); Alkaline Phosphatase 86 U/L (45-117); Anion Gap 4 (5-15); BUN 20 mg/dL (7-18); BUN/Creat Ratio 20.6 RATIO (10-20); Chloride 108 mmol/L (98-107); Creatinine, Serum 0.97 mg/dL (0.70-1.30); EST Glomerular Filtration Rate 84 mL/min (>60); Est Glom Filt Rate - Afr Amer 102 mL/min (>60); Globulin 3.3 g/dL (2.2-4.2); Glucose 120 mg/dL (74-106); Sodium Level 138 mmol/L (136-145)
== END | disposition home or self-care (01) ==
PROVIDERS: PCP Nurse Practitioner Family; Referring Provider Nurse Practitioner Family; Visit Provider Nurse Practitioner Family
DX: R05.9 Cough, unspecified (principal); L03.90 Cellulitis, unspecified; M25.551 Pain in right hip; R06.2 Wheezing
CPT/HCPCS: 36415; 71046; 73521; 80053; 85027

== ENCOUNTER → 2023-08-18 | Outpatient (CLI) | payer MEDICARE, SELFPAY ==
[2023-08-18 14:10] LABS: ALB/GLOB Ratio 1.1 RATIO (0.9-2.4); AST(SGOT) 18 U/L (15-37); Alanine Aminotransfer ALT/SGPT 43 U/L (16-61); Albumin, Serum 3.7 g/dL (3.2-5.0); Alkaline Phosphatase 69 U/L (45-117); Anion Gap 3 (5-15); BUN 19 mg/dL (7-18); BUN/Creat Ratio 20.1 RATIO (10-20); Calcium,Total 9.1 mg/dL (8.5-10.1); Chloride 109 mmol/L (98-107); Cholesterol 201 mg/dL (200); Creatinine, Serum 0.94 mg/dL (0.70-1.30); EST Glomerular Filtration Rate 87 mL/min (>60); Est Glom Filt Rate - Afr Amer 105 mL/min (>60); Globulin 3.3 g/dL (2.2-4.2); Glucose 116 mg/dL (74-106); High Density Lipoprotein 37 mg/dL; PSA,Total - Annual Screen 2.54 ng/mL (0.00-4.00); Potassium 3.7 mmol/L (3.5-5.1); Sodium Level 138 mmol/L (136-145); Triglycerides 113 mg/dL; Very Low Density Lipoprotein 23 mg/dL (5-40)
[2023-08-18 14:29] LABS: Hemoglobin A1c 5.5 % (3.8-5.6)
== END | disposition home or self-care (01) ==
PROVIDERS: PCP Nurse Practitioner Family; Referring Provider Nurse Practitioner Family; Visit Provider Nurse Practitioner Family
DX: R73.01 Impaired fasting glucose (principal); Z12.5 Encounter for screening for malignant neoplasm of prostate; Z13.220 Encounter for screening for lipoid disorders
CPT/HCPCS: 36415; 80053; 80061; 83036; 84153; 84443; G0103

== ENCOUNTER 2023-10-05 11:37 | Emergency (ER) | payer MEDICARE, SELFPAY ==
[2023-10-05 11:39] VITALS: BP 174/101; PULSE 77; PULSE 80; RESP 16; TEMP 36.3; O2SAT 96; BMI 28.8
[2023-10-05 11:41] VITALS: BMI 28.4
--- NOTE | 2023-10-05 11:55 | RAD_ITS ---
STUDY: X-RAY CHEST REASON FOR EXAM: Male, 58 years old. Chest pain TECHNIQUE: PA and lateral views of the chest. COMPARISON: 08/19/2022 FINDINGS: EKG leads overlie the chest The lungs are clear and expanded. There is no demonstrated pleural abnormality. Normal size heart. Normal mediastinum and devan. Normal visualized pulmonary arteries. Normal visualized aortic arch and descending thoracic aorta. There are diffuse degenerative changes of the visualized thoracic spine. Normal visualized ribs, clavicles, and shoulders. There is no demonstrated abnormality of the visualized soft tissue structures of the upper abdomen. RAD/Chest PA and Lateral IMPRESSION: No acute pulmonary process Electronically Signed: Dale Moreno MD at 12:37 EDT ,
--- NOTE | 2023-10-05 11:55 | EKG12_ITS ---
Test Reason : Blood Pressure : / mmHG Vent. Rate : 064 BPM Atrial Rate : 064 BPM P-R Int : 166 ms QRS Dur : 090 ms QT Int : 426 ms P-R-T Axes : 045 015 121 degrees QTc Int : 439 ms Normal sinus rhythm ST & T wave abnormality, consider anterolateral ischemia Abnormal ECG Confirmed by LEODAN CURIEL, CARLINE ([id number]), design editor ARACELI DONIS ([id number]) on 10/06/2023 9:36:51 AM Referred By: Confirmed By:CARLINE ALCOCER MD
--- NOTE | 2023-10-05 11:59 | EX.ED.DYSGE1 ---
HPI <ANY Ruiz - Last Filed: 10/05/23 18:11> History of Present Illness Chief Complaint: Weakness Narrative Narrative: Patient presenting today due to multiple vague complaints that started last night. He reports that he has midsternal chest pressure and all chest pain that started last night. He has felt slightly short of breath with exertion. He also reports that he feels,dry and weak. He does have a history of GERD and has had increased gastric reflux today, he did try taking Pepcid for this with minimal relief. He reports that he has had spasming to his bilateral legs for a while now and his PCP is referring him to neurology, he has also had a pins and needle sensation to his bilateral feet for some time. He denies any history of neuropathy or diabetes mellitus. He has a PMH of GERD and COPD. He denies a cardiac history or any history of blood clots/recent surgery/travel/immobilization. He denies fevers, chills, recent illness, abdominal pain, urinary symptoms, and vomiting. He reports that his bowel movements have been normal. [facility] <ANY Ruiz - Last Filed: 10/05/23 18:11> [facility] Medical History Diarrhea Liver cyst Adrenal mass JENNIFER (generalized anxiety disorder) IFG (impaired fasting glucose) Hiatal hernia Back pain with radiculopathy Dysphagia Umbilical hernia Periumbilical abdominal pain Sleep apnea Emphysema lung DJD (degenerative joint disease), cervical Lactose intolerance IBS (irritable bowel syndrome) GERD (gastroesophageal reflux disease) Asthma COPD (chronic obstructive pulmonary disease) Home Medications ?Medication ?Instructions ?Recorded ?Last Taken ?Type esomeprazole magnesium 20 mg 20 mg PO DAILY 09/07/22 Unknown History tablet,delayed release (Nexium 24HR) famotidine 40 mg tablet 40 mg PO DAILY 09/07/22 Unknown History albuterol sulfate 90 mcg/actuation 2 puff inhalation Q6H PRN 09/22/22 Unknown Rx aerosol inhaler shortness of breath or wheezing #6.7 grams azithromycin 250 mg tablet See Rx Instructions PO .COMPLEX #6 09/22/22 Unknown Rx tabs cephalexin 500 mg capsule 500 mg PO BID 10/05/23 Unknown History Allergy/AdvReac Type Severity Reaction Status Date / Time lemon Allergy Severe SOB Verified 10/05/23 11:41 aspirin Allergy Shortness Verified 10/05/23 11:41 of breath ciprofloxacin HCl (From Allergy Unknown Verified 10/05/23 11:41 Cipro) doxycycline Allergy Unknown Verified 10/05/23 11:41 Iodinated Contrast Media Allergy Unknown Verified 10/05/23 11:41 (Iodinated Contrast Media - IV Dye) lisinopril Allergy Other Verified 10/05/23 11:41 milk Allergy Unknown Verified 10/05/23 11:41 Sulfa (Sulfonamide AdvReac Severe SOB Verified 10/05/23 11:41 Antibiotics) Family History Father Asthma Diabetes Hypertension Mother Asthma Hypertension Surgical History History of neck surgery History of neck surgery History of neck surgery History of hernia repair History of hernia repair Social History Smoking Status: Current every day smoker tobacco type: cigarettes alcohol intake: former substance use type: marijuana ROS <ANY Ruiz - Last Filed: 10/05/23 18:11> ROS ED Constitutional Constitutional ED: Denies chills or fever(s) Cardiovascular Cardiovascular: Reports chest pain; Denies palpitations Respiratory/Chest Respiratory/Chest: Reports dyspnea on exertion; Denies cough or wheezing Gastrointestinal Gastrointestinal: Reports nausea; Denies abdominal pain, constipation, diarrhea or vomiting Genitourinary Genitourinary ED: Denies dysuria, hematuria or urinary urgency Musculoskeletal Musculoskeletal: Reports myalgias; Denies arthralgias Integumentary Denies rash Neurologic Neurologic: Reports weakness EXAM <ANY Ruiz - Last Filed: 10/05/23 18:11> Physical Exam Const Vital Signs: 10/05/23 11:38 10/05/23 11:39 10/05/23 11:39 Temperature 97.4 F L Temperature Source Temporal Pulse Rate 80 77 Respiratory Rate 16 16 Respiratory Effort Normal Non-Labored Respiratory Pattern Normal Blood Pressure 174/101 H 174/101 H Blood Pressure Mean 125 125 Pulse Ox 96 96 Oxygen Delivery Method Room Air 10/05/23 11:55 10/05/23 12:38 10/05/23 14:00 Temperature Temperature Source Pulse Rate 68 68 Respiratory Rate 10 L 14 Respiratory Effort Respiratory Pattern Blood Pressure 184/104 H 184/104 H Blood Pressure Mean 130 130 Pulse Ox 98 98 Oxygen Delivery Method Room Air Room Air 10/05/23 14:45 Temperature 97.8 F Temperature Source Pulse Rate 88 Respiratory Rate 14 Respiratory Effort Respiratory Pattern Blood Pressure 177/100 H Blood Pressure Mean 125 Pulse Ox 99 Oxygen Delivery Method Positive well nourished, well developed and no apparent distress General Appearance ED: well developed HEENT Reports normocephalic and head/scalp atraumatic Mouth ED: Yes moist mucous membranes normal Eyes PERRL and EOMs intact bilaterally Neck full ROM and supple Chest Wall inspection of chest normal Resp normal respiratory effort and clear to auscultation bilaterally Cardio regular rate and regular rhythm GI soft to palpation, non-tender, non-distended and no masses Back/Spine normal ROM and normal to inspection Extremity normal to inspection and full ROM Extremity Narrative: Bilateral DP pulse 2+, good capillary refill, sensation to the bilateral feet decreased bilaterally Neuro oriented x3, CN's II-XII intact bilaterally, moves all extremities, no focal motor deficits and no sensory deficits noted Sensorium / Orientation: awake and alert Psych mental status grossly normal and thought process normal Skin no rashes or lesions noted and no wounds <Nehemias Lorenzo MD - Last Filed: 10/05/23 14:58> Physical Exam Const Vital Signs: 10/05/23 11:38 10/05/23 11:39 10/05/23 11:39 Temperature 97.4 F L Temperature Source Temporal Pulse Rate 80 77 Respiratory Rate 16 16 Respiratory Effort Normal Non-Labored Respiratory Pattern Normal Blood Pressure 174/101 H 174/101 H Blood Pressure Mean 125 125 Pulse Ox 96 96 Oxygen Delivery Method Room Air 10/05/23 11:55 10/05/23 12:38 10/05/23 14:00 Temperature Temperature Source Pulse Rate 68 68 Respiratory Rate 10 L 14 Respiratory Effort Respiratory Pattern Blood Pressure 184/104 H 184/104 H Blood Pressure Mean 130 130 Pulse Ox 98 98 Oxygen Delivery Method Room Air Room Air 10/05/23 14:45 Temperature 97.8 F Temperature Source Pulse Rate 88 Respiratory Rate 14 Respiratory Effort Respiratory Pattern Blood Pressure 177/100 H Blood Pressure Mean 125 Pulse Ox 99 Oxygen Delivery Method MDM <ANY Ruiz - Last Filed: 07/04/24 18:11> [facility] MDM Narrative Medical decision making narrative: Patient presenting today with multiple vague complaints. He reports midsternal chest pressure that started last night as well as shortness of breath. Oxygen saturation is 98% on room air, he is not tachycardic, he has a Wells score of 0, low suspicion for PE. He also reports cramping to his bilateral legs and paresthesias to his bilateral feet that he has had for a while. His PCP did refer him to neurology who he has not yet followed up with. He reports vague weakness , feels dehydrated, and also has gastric reflux. Clinically he does not appear dehydrated but will be given IV fluids and Zofran. patient given Toradol for his muscle cramping. Labs will be obtained to assess for anemia, leukocytosis, electrolyte abnormality, MADGALENA, UTI, and ACS. Chest x-ray to rule out pneumonia and other cardiopulmonary abnormality. He did begin to report difficulty ambulating and leg weakness, for that reason head CT was obtained to rule out intracranial abnormality and is negative. He was ambulated by the nurse and did well. He does report improvement of his symptoms and is requesting to go home because he is hungry. I did encourage that he have close follow-up with his PCP, patient was discharged home in stable condition. Lab Data Attestation: I reviewed the patient's lab results. Labs: Laboratory Results - last 24 hr 10/05/23 10/05/23 11:50 14:03 WBC 9.3 RBC 4.87 Hgb 15.1 Hct 44.9 MCV 92.2 MCH 31.0 MCHC 33.6 RDW Std Deviation 46.1 H RDW Coeff of Kingsley 13.5 Plt Count 328 MPV 9.5 Immature Gran % (Auto) 0.900 Neut % (Auto) 75.0 H Lymph % (Auto) 16.8 L Payne % (Auto) 6.5 Eos % (Auto) 0.4 Baso % (Auto) 0.4 Absolute Neuts (auto) 7.0 Absolute Lymphs (auto) 1.56 Nucleated RBC % 0 Sodium 140 Potassium 3.6 Chloride 109 H Carbon Dioxide 24.0 Anion Gap 7 BUN 17 Creatinine 0.94 Estim Creat Clear Calc 89.90 Est GFR (MDRD) Af Amer 105 Est GFR (MDRD) Non-Af 87 BUN/Creatinine Ratio 18.0 Glucose 116 H Calcium 9.4 Troponin I High Sens 45 Urine Color Yellow Urine Clarity Clear Urine pH 8.0 Ur Specific [place] 1.015 Urine Protein Negative Urine Glucose (UA) Normal Urine Ketones 50 H Urine Occult Blood Negative Urine Nitrite Negative Urine Bilirubin Negative Urine Urobilinogen Normal Ur Leukocyte Esterase Negative Urine RBC 0 SEEN Urine WBC 0 SEEN Ur Squamous Epith Cells 0 SEEN Urine Bacteria 0 SEEN Urine Mucus 0 SEEN Radiography X-Ray: Read by ED Physician Diagnostic Testing: Clinical Impression(s) from Imaging Studies Chest X-Ray 10/05/23 11:55 IMPRESSION: No acute pulmonary process Electronically Signed: Dale Moreno MD at 12:37 EDT , Brain CT 10/05/23 12:43 IMPRESSION: Normal unenhanced CT scan of the brain. Electronically Signed: Dale Moreno MD at 13:36 EDT , EKG Initial EKG: Comments: 64 bpm, normal sinus rhythm, no ST elevation, T wave inversions to leads 1 and V2 through V6. <Nehemias Lorenzo MD - Last Filed: 10/05/23 14:58> [facility] Lab Data Labs: Laboratory Results - last 24 hr 10/05/23 10/05/23 11:50 14:03 WBC 9.3 RBC 4.87 Hgb 15.1 Hct 44.9 MCV 92.2 MCH 31.0 MCHC 33.6 RDW Std Deviation 46.1 H RDW Coeff of Kingsley 13.5 Plt Count 328 MPV 9.5 Immature Gran % (Auto) 0.900 Neut % (Auto) 75.0 H Lymph % (Auto) 16.8 L Payne % (Auto) 6.5 Eos % (Auto) 0.4 Baso % (Auto) 0.4 Absolute Neuts (auto) 7.0 Absolute Lymphs (auto) 1.56 Nucleated RBC % 0 Sodium 140 Potassium 3.6 Chloride 109 H Carbon Dioxide 24.0 Anion Gap 7 BUN 17 Creatinine 0.94 Estim Creat Clear Calc 89.90 Est GFR (MDRD) Af Amer 105 Est GFR (MDRD) Non-Af 87 BUN/Creatinine Ratio 18.0 Glucose 116 H Calcium 9.4 Troponin I High Sens 45 Urine Color Yellow Urine Clarity Clear Urine pH 8.0 Ur Specific [place] 1.015 Urine Protein Negative Urine Glucose (UA) Normal Urine Ketones 50 H Urine Occult Blood Negative Urine Nitrite Negative Urine Bilirubin Negative Urine Urobilinogen Normal Ur Leukocyte Esterase Negative Urine RBC 0 SEEN Urine WBC 0 SEEN Ur Squamous Epith Cells 0 SEEN Urine Bacteria 0 SEEN Urine Mucus 0 SEEN Radiography Diagnostic Testing: Clinical Impression(s) from Imaging Studies Chest X-Ray 10/05/23 11:55 IMPRESSION: No acute pulmonary process Electronically Signed: Dale Moreno MD at 12:37 EDT , Brain CT 10/05/23 12:43 IMPRESSION: Normal unenhanced CT scan of the brain. Electronically Signed: Dale Moreno MD at 13:36 EDT , Treatment and Re-Evaluation :: Dr. Lorenzo: I have personally performed a face to face assessment of the patient and have reviewed the DU Note. I performed a substantive portion of the visit including all aspects of the following. My vance findings include: History is patient with multiple somatic complaints, stating that he had chest pain yesterday evening, is having problems when he moves his legs. He complains of neuropathy in his bilateral lower extremities as well for which she was already referred to neurology by his primary care provider but he has not seen the neurologist as of yet. He presents with generalized weakness as well. Exam is afebrile. Vital signs noted. Regular rate and rhythm. Lungs clear to auscultation bilaterally. Abdomen soft nontender with normoactive bowel sounds. Neurological examination nonfocal and nonlateralizing. Medical Decision Making: Check EKG, check troponin. EKG interpreted by myself independently demonstrates normal sinus rhythm with T wave inversion in the anterior leads, however his last EKG in comparison was in 2018. Given his troponin negative and greater than 6 hours of reported chest pain, I feel he has been ruled out with a single biomarker and that he does not require serial enzymes. Chest x-ray in 1 view interpreted by myself independently shows no evidence of an acute process, no pneumonia or pneumothorax. I reviewed the radiology report which confirms my independent interpretation. Additionally, I reviewed the radiology report of the CT of the brain which shows no evidence of an acute process. Urinalysis is negative for infection, CBC and CMP are grossly unremarkable. He was able to ambulate in the ED and wants to go home. I feel he can be discharged to follow-up. I do not feel that he requires observation or admission at this time as he is able to ambulate without difficulty. Return instructions were reviewed. Disposition is discharged home in stable condition. Other additions or changes: [None] Discharge Plan Triage Chief Complaint: Weakness ED Midlevel Provider: Nina Mansfield ED Provider: Nehemias Lorenzo Dx/Rx/DC Orders Clinical Impression: Weakness, Chest pain, Bilateral leg cramps, Paresthesia of foot, bilateral, Gastroesophageal reflux disease Instructions: ED Chest Pain, Uncertain Cause, ED Leg Spasm, ED Paraesthesias Prescriptions: No Action famotidine 40 mg tablet 40 mg PO DAILY esomeprazole magnesium [Nexium 24HR] 20 mg tablet,delayed release (DR/EC) 20 mg PO DAILY azithromycin 250 mg tablet See Rx Instructions PO .COMPLEX Qty: 6 0RF Rx Instructions: take 500 mg today (day 1), then 250 mg for 4 days (days 2-5) PO albuterol sulfate 90 mcg/actuation HFA aerosol inhaler 2 puff inhalation Q6H PRN (Reason: shortness of breath or wheezing) Qty: 6.7 0RF cephalexin 500 mg capsule 500 mg PO BID Primary Care Provider: Giorgi Leggett NP Referrals: Giorgi Leggett PRESS FEEDER, PRESS FEEDER-C [Primary Care Provider] - 5-7 Days Activity Restrictions/Additional Instructions: Please follow-up with your PCP and return for any worsening of your symptoms. Print Language: Armenian Disposition Disposition: Home, Self Care Discharge Date/Time: 10/05/23 14:46
[2023-10-05 12:03] LABS: Absolute Lymphocyte Count 1.56 X10^3/uL (0.83-4.51); Basophil# 0.04 X10^3/uL; Basophil% 0.4 % (0-1); Eosinophil# 0.04 X10^3/uL; Eosinophils% 0.4 % (0-5); Hematocrit 44.9 % (40-54); Hemoglobin 15.1 g/dL (13.0-16.5); Lymphocyte # 1.56 X10^3/ul (0.83-4.51); Lymphocyte % 16.8 % (19-41); Mean Corp Hgb Conc 33.6 g/dL (32-36); Mean Corpuscular Volume 92.2 fL (80-94); Mean Platelet Vol. 9.5 fl (6.2-12.0); Monocyte% 6.5 % (0-10); NRBC Flagged by Analyzer 0 % (0-5); Neutrophil # 6.95 X10^3/uL (2.7-7.7); Platelet Count 328 K/mm3 (150-450); RBC Distribution Width CV 13.5 % (11.6-14.6); RBC Distribution Width SD 46.1 fl (35.1-43.9); Red Blood Count 4.87 M/mm3 (4.6-6.2); White Blood Count 9.3 K/mm3 (4.4-11.0)
[2023-10-05 12:29] LABS: Anion Gap 7 (5-15); BUN 17 mg/dL (7-18); Calcium,Total 9.4 mg/dL (8.5-10.1); Chloride 109 mmol/L (98-107); Creatinine, Serum 0.94 mg/dL (0.70-1.30); EST Glomerular Filtration Rate 87 mL/min (>60); Est Glom Filt Rate - Afr Amer 105 mL/min (>60); Glucose 116 mg/dL (74-106); Potassium 3.6 mmol/L (3.5-5.1); Sodium Level 140 mmol/L (136-145); Troponin-I HS 45 pg/mL (3.0-78.0)
[2023-10-05 12:38] VITALS: BP 184/104; PULSE 68; RESP 10; O2SAT 98
--- NOTE | 2023-10-05 12:43 | CT_ITS ---
STUDY: CT BRAIN WITHOUT CONTRAST REASON FOR EXAM: Male, 58 years old. Severe headache RADIATION DOSAGE (If Supplied By Facility): CTDIvol = ( 44.99 ) mGy, DLP = ( 849.54 ) mGycm TECHNIQUE: Transaxial CT imaging of the brain was performed without administration of intravenous contrast material. Individualized dose optimization techniques were used for this CT. COMPARISON: No relevant priors. FINDINGS: Normal soft tissue structures. Normal calvarium. Normal size ventricles and extra-axial spaces for the patient''s age. Normal white matter tracts of the cerebral hemispheres. Normal basal ganglia and thalami. Normal brainstem. Normal cerebellum. There is no intracranial hemorrhage. There are no findings of an acute ischemic infarction. Normal visualized paranasal sinuses. CT/Brain/Head without Contrast IMPRESSION: Normal unenhanced CT scan of the brain. Electronically Signed: Dale Moreno MD at 13:36 EDT ,
[2023-10-05] MEDS: Ondansetron 4 MG/2 ML Vial IV (12:44)
[2023-10-05] MEDS: 0.9% Normal Saline (1000mL) 1,000 ML 999 ML IV (12:45)
[2023-10-05 14:00] VITALS: BP 184/104; PULSE 68; RESP 14; O2SAT 98
[2023-10-05 14:08] LABS: Bacteria 0 SEEN /hpf (None Seen); Mucous, Urine 0 SEEN /hpf (<or=2+); Red Blood Cells-Urine 0 SEEN /hpf (0-5); Squamous Epithelial Cells - UA 0 SEEN /hpf (0-5); White Blood Cells 0 SEEN /hpf (0-5)
[2023-10-05 14:16] LABS: Color, Urine Yellow (Yellow); Glucose, Dipstick Normal (Normal); Ketone-Dipstick 50 mg/dl (Negative); Leukocyte Esterase-Dipstick Negative /ul (Negative); Nitrite-Dipstick Negative (Negative); Occult Blood-Urine Negative /ul (Negative); Protein-Dipstick Negative (Negative); Specific Gravity, Urine 1.015 (1.002-1.030); Urine Bilirubin Dipstick Negative (Negative); Urine Clarity Clear (Clear); Urine Urobilinogen Normal (Normal)
[2023-10-05] MEDS: Ketorolac 15 MG/ML Vial IV (14:18)
[2023-10-05 14:45] VITALS: BP 177/100; PULSE 88; RESP 14; TEMP 36.6; O2SAT 99
== END 2023-10-05 14:46 | disposition home or self-care (01) ==
PROVIDERS: Physician Assistant; Emergency Provider Emergency Medicine; PCP Nurse Practitioner Family; Visit Provider Emergency Medicine
DX: R53.1 Weakness (principal); J44.9 Chronic obstructive pulmonary disease, unspecified; R07.9 Chest pain, unspecified; R20.2 Paresthesia of skin; K21.9 Gastro-esophageal reflux disease without esophagitis; F17.210 Nicotine dependence, cigarettes, uncomplicated; Z79.51 Long term (current) use of inhaled steroids
CPT/HCPCS: 70450; 71046; 80048; 81001; 84484; 85025; 93005; 96374; 96375; 99284; J7030; A4216; J2405

== ENCOUNTER → 2024-02-20 | Outpatient (CLI) | payer MEDICARE, SELFPAY ==
--- NOTE | 2024-02-20 14:02 | RAD_ITS ---
STUDY: X-RAY - PELVIS AND LEFT HIP REASON FOR EXAM: Male, 58 years old. Left hip pain TECHNIQUE: 3 views of the pelvis and hip. COMPARISON: None. FINDINGS: There is a non-specific bowel gas pattern. Normal visualized soft tissue structures. Normal bilateral iliac wings, sacroiliac joints and visualized sacrum. Normal bilateral superior and inferior pubic rami. Normal pubic symphysis. Normal bilateral ischial tuberosities. Normal visualized femoral head. Normal acetabulum. Normal hip joint. RAD/HIP, UNI W/ Pelvis 2-3 Views IMPRESSION: Normal x-ray examination of the pelvis and hip. Electronically Signed: Maximo Cardenas MD at 14:35 EST ,
--- NOTE | 2024-02-20 14:30 | RAD_ITS ---
STUDY: X-RAY - LUMBAR SPINE REASON FOR EXAM: Male, 58 years old. Low back pain following a fall. TECHNIQUE: 3 view(s) of the lumbar spine were obtained. COMPARISON: Comparison is made with prior study August 12, 2021. FINDINGS: Normal lumbar lordosis. There is no substantial scoliosis. There is a normal alignment of the vertebrae. There is multilevel endplate spondylosis of the lumbar vertebrae. There is multi-level degenerative disc disease with multi-level disc space narrowing. Facet joint osteoarthritis. There is atherosclerotic calcification of the abdominal aorta without a demonstrated aneurysm. RAD/Lumbar Spine 2 or 3 Views IMPRESSION: Degenerative changes of the spine, as detailed above. Electronically Signed: Maximo Cardenas MD at 14:58 EST ,
== END | disposition home or self-care (01) ==
PROVIDERS: PCP Nurse Practitioner Family; Referring Provider Physician Assistant; Visit Provider Physician Assistant
DX: M25.552 Pain in left hip (principal); W19.XXXA Unspecified fall, initial encounter
CPT/HCPCS: 72100; 73502

== ENCOUNTER → 2024-03-07 | Outpatient (CLI) | payer MEDICARE, SELFPAY ==
[2024-03-07 13:17] LABS: Hematocrit 45.4 % (40-54); Hemoglobin 15.2 g/dL (13.0-16.5); Mean Corp Hgb Conc 33.5 g/dL (32-36); Mean Corpuscular Volume 92.7 fL (80-94); Mean Platelet Vol. 9.6 fl (6.2-12.0); Platelet Count 256 K/mm3 (150-450); RBC Distribution Width SD 44.4 fl (35.1-43.9); White Blood Count 7.8 K/mm3 (4.4-11.0)
[2024-03-07 13:42] LABS: PTHIN 65.9 pg/mL (18.4-80.1)
[2024-03-07 13:45] LABS: ALB/GLOB Ratio 1.3 RATIO (0.9-2.4); AST(SGOT) 22 U/L (15-37); Alanine Aminotransfer ALT/SGPT 31 U/L (16-61); Albumin, Serum 3.8 g/dL (3.2-5.0); Alkaline Phosphatase 82 U/L (45-117); Anion Gap 2 (5-15); BUN 19 mg/dL (7-18); BUN/Creat Ratio 20.3 RATIO (10-20); Calcium,Total 8.8 mg/dL (8.5-10.1); Chloride 110 mmol/L (98-107); Cholesterol 108 mg/dL (200); Creatinine, Serum 0.94 mg/dL (0.70-1.30); EST Glomerular Filtration Rate 87 mL/min (>60); Est Glom Filt Rate - Afr Amer 106 mL/min (>60); Glucose 109 mg/dL (74-106); High Density Lipoprotein 48 mg/dL; Potassium 3.8 mmol/L (3.5-5.1); Protein, Total 6.8 g/dL (6.4-8.2); Sodium Level 140 mmol/L (136-145); Triglycerides 109 mg/dL; Very Low Density Lipoprotein 22 mg/dL (5-40)
[2024-03-07 13:47] LABS: Vitamin D,25 Hydroxy 18.1 ng/mL
[2024-03-07 13:56] LABS: Hemoglobin A1c 5.9 % (3.8-5.6)
== END | disposition home or self-care (01) ==
LOC: LAB 12:48
PROVIDERS: PCP Nurse Practitioner Family; Referring Provider Nurse Practitioner Family; Visit Provider Nurse Practitioner Family
DX: E78.5 Hyperlipidemia, unspecified (principal); N28.9 Disorder of kidney and ureter, unspecified; R73.01 Impaired fasting glucose
CPT/HCPCS: 36415; 80053; 80061; 82306; 83036; 83970; 85027